=== PATIENT | female | born 1940 | race Caucasian/White ===

== ENCOUNTER 2018-08-24 09:15 | Inpatient (IN) ==
[2018-08-20 18:42] LABS: Basophils # (Auto) 0 K/mcL (0.0-0.3); Basophils % (Auto) 0.6 % (0.0-2.0); Eosinophils # (Auto) 0.3 K/mcL (0.0-0.7); Eosinophils % (Auto) 5.1 % (0.0-7.0); Granulocytes % (Auto) 57.2 % (38.0-78.0); Lymphocytes # (Auto) 1.3 K/mcL (1.5-4.8); Lymphocytes % (Auto) 22.7 % (15.5-49.0); Mean Cell Volume 88.2 fL (80.0-100.0); Mean Corpuscular HGB Conc 32.1 g/dL (31.0-36.0); Monocytes # (Auto) 0.8 K/mcL (0.1-0.9); Monocytes % (Auto) 14.4 % (1.0-12.0); Platelet Count 379 K/mcL (140-440); RBC 4.11 M/mcL (4.00-5.20); Red Cell Distribution Width 16.9 % (11.5-14.5)
[2018-08-20 18:46] LABS: Appearance,Urine HAZY; Bacteria,Urine 0 /hpf (0); Bilirubin,Urine NEG (NEG); Color,Urine YELLOW; Glucose,Urine (UA) NEGATIVE (NEG); Leukocyte Esterase,Urine 250 /uL (NEG); Mucus,Urine MOD /hpf (0); Protein,Urine NEG (NEG); Specific Gravity,Urine 1.021 (1.000-1.035); Urine Blood NEG mg/dL (<0.03); Urine RBC 4 /hpf (0-1); Urine Squamous Epithelial Cell 6 /hpf (0-4); Urine Transitional Epi Cells < 1 /hpf (0-2); Urine WBC 23 /hpf (0-4); Urobilinogen,Urine NEG (NEG)
[2018-08-20 19:45] LABS: Blood Urea Nitrogen 20 mg/dl (8-23)
[2018-09-07] MEDS ORDERED: 0.9 % SODIUM CHLORIDE 9 ML, KETOROLAC 30 MG, ROPIVACAINE HCL/PF 49.5 ML, EPINEPHrine 0.... IJ SCH (07:00)
[2018-09-07] MEDS ORDERED: ACETAMINOPHEN 500 MG TABLET PO SCH (07:00)
[2018-09-07] MEDS ORDERED: CELECOXIB 200 MG CAPSULE PO SCH (07:00)
[2018-09-07] MEDS ORDERED: oxyCODONE 10 MG TAB.ER.12H PO SCH (07:00)
[2018-09-07] MEDS ORDERED: ceFAZolin 2 GM in DEXTROSE 5% IN WATER 50 ML IV SCH (07:00)
[2018-09-07] MEDS ORDERED: GABAPENTIN 100 MG CAPSULE PO SCH (07:00)
[2018-09-07] MEDS ORDERED: ePHEDrine 50 MG/ML AMPUL IV ONE (07:35)
[2018-09-07] MEDS ORDERED: MIDAZOLAM 2 MG/2 ML VIAL IV ONE (07:35)
[2018-09-07] MEDS ORDERED: DEXAMETHASONE 4 MG/ML VIAL IV ONE (07:35)
[2018-09-07] MEDS ORDERED: ONDANSETRON 4 MG/2 ML VIAL IV ONE (07:35)
[2018-09-07] MEDS ORDERED: PROPOFOL 200 MG/20 ML VIAL IV ONE (07:35)
[2018-09-07] MEDS ORDERED: PHENYLEPHRINE 10 MG/ML VIAL IV ONE (07:35)
[2018-09-07] MEDS ORDERED: ROPIVACAINE HCL/PF 20 ML VIAL IJ ONE (07:35)
[2018-09-07] MEDS ORDERED: LIDOCAINE HCL/PF 100 MG/5 ML SYRINGE IV ONE (07:35)
[2018-09-07] MEDS ORDERED: TRANEXAMIC ACID 1,000 MG/10 ML VIAL IV ONE ×2 (07:35→09:03)
[2018-09-07] MEDS ORDERED: GENTAMICIN SULFATE 800 MG/20 ML VIAL IR ONE (08:13)
[2018-09-07] MEDS ORDERED: BISACODYL 10 MG SUPP.RECT PR PRN (09:03)
[2018-09-07] MEDS ORDERED: BENZOCAINE/MENTHOL 1 LOZENGE PO PRN (09:03)
[2018-09-07] MEDS ORDERED: FLEETS ADULT ENEMA PR PRN (09:03)
[2018-09-07] MEDS ORDERED: MAGNESIUM HYDROXIDE 30 ML ORAL.SUSP PO PRN (09:03)
[2018-09-07] MEDS ORDERED: ACETAMINOPHEN 325 MG TABLET PO PRN (09:03)
[2018-09-07] MEDS ORDERED: POLYETHYLENE GLYCOL 3350 17 GM PACKET PO PRN (09:03)
[2018-09-07] MEDS ORDERED: TEMAZEPAM 15 MG CAPSULE PO PRN (09:03)
[2018-09-07] MEDS ORDERED: CLIDINIUM PO PRN (09:05)
[2018-09-07] MEDS ORDERED: DICYCLOMINE 20 MG TABLET PO PRN (09:05)
[2018-09-07] MEDS ORDERED: ONDANSETRON 4 MG ODT TABLET PO PRN (09:05)
[2018-09-07] MEDS ORDERED: CHLORDIAZEPOXIDE PO PRN (09:05)
[2018-09-07] MEDS ORDERED: ALPRAZolam 0.5 MG TABLET PO PRN (09:05)
[2018-09-07] MEDS ORDERED: NITROGLYCERIN 0.4 MG TAB.SUBL SL PRN (09:05)
[2018-09-07] MEDS ORDERED: ONDANSETRON 4 MG/2 ML VIAL IV PRN (09:57)
[2018-09-07] MEDS ORDERED: FLUMAZENIL 0.1 MG/ML ML IV PRN (09:57)
[2018-09-07] MEDS ORDERED: IPRATROPIUM/ALBUTEROL 3 ML AMPUL.NEB NEB PRN (09:57)
[2018-09-07] MEDS ORDERED: NALOXONE HCL 0.4 MG/ML VIAL IV PRN (09:57)
--- NOTE | 2018-09-07 10:00 | XRay Report ---
CLINICAL INFORMATION: Right knee replacement TECHNIQUE: AP and crosstable lateral right knee COMPARISON: Previous examination dated 12/19/2016 FINDINGS: Status post right total knee arthroplasty. Anatomic alignment demonstrated. There is postsurgical soft tissue and intra-articular gas. There are skin maynor anteriorly IMPRESSION: Status post right total knee arthroplasty Interpreted and Authenticated by: Rock Mendoza 09/07/18
[2018-09-07] MEDS: fentaNYL 100 MCG/2 ML VIAL IV PRN ×4 (10:05→10:13)
--- NOTE | 2018-09-07 10:29 | Brief Operative Note ---
Date of procedure: 09/07/18 Pre-op diagnosis: righrt knee djd severe Post-op diagnosis: same Procedure: Right total knee Grafts/Implants: Yes Anesthesia: GETA Surgeon: Carlos Manuel Mcneill Timekeeper: Tony Latham Estimated blood loss (cc): 20 Tourniquet Time (Minutes): 50 Specimens Removed/Pathology: none sent Condition: stable Disposition: PACU
[2018-09-07] MEDS: 0.45 % SODIUM CHLORIDE 1,000 ML IV SCH ×2 (10:30→20:46)
[2018-09-07] MEDS: HYDROmorphone 2 MG/ML VIAL IV PRN ×2 (10:46→12:22)
--- NOTE | 2018-09-07 11:02 | Operative Note ---
DATE OF OPERATION: 09/07/2018 PREOPERATIVE DIAGNOSIS: Right knee severe degenerative arthritis. POSTOPERATIVE DIAGNOSIS: Right knee severe degenerative arthritis. PROCEDURE: Right total knee arthroplasty using the Rico robot. SURGEON: Carlos Manuel Mcneill MD TANGLED YARN SPOOL STRAIGHTENER: Tony Latham PA-C TOURNIQUET TIME: Approximately 50 minutes. ESTIMATED BLOOD LOSS: About 100 mL IMPLANTS: Per nurse's note. All components were cemented. DESCRIPTION OF PROCEDURE: The patient was brought to the operating room and put to sleep with general LMA anesthesia. Once asleep, the patient had the right leg sterilely prepped and draped in the usual sterile fashion. Once done, a timeout was performed. Tranexamic acid and preoperative antibiotics were given. We made a midline incision, a mid vastus approach performed. We identified the joint and removed osteophytes, placed pins above and below the knee for the robot, registered the center of hip rotation, registered medial and lateral malleoli, registered 30 points on the femur and the tibia. Intra-articular pins were registered and then we balanced the knee at 90 degrees and in full extension at 15 degrees. There was a valgus malalignment of slight 1 degree flexion contracture. The valgus was approximately 7 degrees of valgus. With this, we did bring the patient back to normal anatomy, which was 2 degrees of varus and 2 degrees of hyperextension. Using the components and aligning this perfectly, we thickened her patella from a total thickness of 18 to 22. After we exposed everything, we brought the robot in and registered the robot itself, confirmed the alignment and then made the bony cuts. Spurs posteriorly were removed, laterally the spurs were removed. We then trialed the components after positioning them and preserving the posterior cruciate ligament. This fit very nicely. We trialed an 11 and then a 12. The 12 seemed to be more appropriate giving more stability anteriorly and balancing the medial collateral ligament. Once done, we then prepared the patella. It measured a total thickness of 18. We then cut it to 13 mm and cemented into place a 29 mm patellar button. We cemented into place the components. After thorough irrigating and using a CarboJet we prepared the bony surface. The tibial base plate was positioned and tapped into place as well as the femoral component. Excess cement was removed. We placed a 12 mm deep dish liner for stability purposes. We irrigated thoroughly and then cemented into place the above-mentioned patellar component, 29 mm all poly component. Excess cement was removed. We kept the knee at 45 degrees and deflated the tourniquet at 50 minutes. We then closed the mid vastus approach with #1 Stratafix x2. There were no complications. The patient tolerated this well. RBH:nicole Job ID: [id number] Doc ID: [id number] Carlos Manuel Mcneill MD
[2018-09-07] MEDS: KETOROLAC 15 MG/ML VIAL IV SCH ×2 (11:43→17:35)
[2018-09-07] MEDS: 0.9 % SODIUM CHLORIDE 10 ML SYRINGE IV SCH ×2 (12:03→20:49)
[2018-09-07] MEDS: oxyCODONE/APAP 5/325MG TABLET PO PRN ×3 (13:02→21:33)
[2018-09-07] MEDS: ceFAZolin 1 GM VIAL IV SCH ×2 (15:36→23:16)
[2018-09-07] MEDS: CALCIUM (OYSTER SHELL) 500 MG TABLET PO SCH ×2 (15:36→20:47)
[2018-09-07] MEDS: GABAPENTIN 100 MG CAPSULE PO SCH ×2 (15:36→20:47)
[2018-09-07] MEDS: DOCUSATE SODIUM 100 MG CAPSULE PO SCH (20:47)
[2018-09-07] MEDS: ASPIRIN 325 MG ENTERIC COATED TABLET PO SCH (20:47)
[2018-09-07] MEDS: FAMOTIDINE 20 MG TABLET PO SCH (20:47)
[2018-09-07] MEDS: SENNOSIDES 1 TABLET PO SCH (20:48)
[2018-09-07] MEDS: HYDROXYCHLOROQUINE 200 MG TABLET PO SCH (20:48)
[2018-09-07] MEDS: TOLTERODINE 2 MG CAP.XL.24H PO SCH (20:48)
[2018-09-07] MEDS: POLYETHYLENE GLYCOL 3350 17 GM PACKET PO SCH (20:49)
[2018-09-07] MEDS: FLUTICASONE/SALMETEROL 50/100 INHALER #14 INH SCH (20:49)
[2018-09-07] MEDS ORDERED: NAPROXEN 500 MG TABLET PO SCH (21:00)
[2018-09-08] MEDS: KETOROLAC 15 MG/ML VIAL IV SCH ×5 (00:50→23:37)
[2018-09-08] MEDS: oxyCODONE/APAP 5/325MG TABLET PO PRN ×6 (01:23→21:23)
[2018-09-08] MEDS: HYDROmorphone 2 MG/ML VIAL IV PRN (02:48)
[2018-09-08] MEDS: 0.45 % SODIUM CHLORIDE 1,000 ML IV SCH ×2 (05:30→15:31)
[2018-09-08] MEDS: 0.9 % SODIUM CHLORIDE 10 ML SYRINGE IV SCH ×3 (05:35→23:38)
--- NOTE | 2018-09-08 07:34 | Orthopedic Progress Note ---
Subjective Patient information: Note initiated : 09/08/18 at 7:33 am Service Date, if different from initiated Date: [] Patient: Rosalinda Gilbert 77 y/o F admitted on 09/07/18 for Right Total Knee Arthroplasty Rico . Chief Complaint: [Pt is stable this morning on post operative day 1 without any significant concerns or complaints. Patients vital signs have remained stable. Patients dressing is dry and is grossly intact from a neurovascular and motor standpoint. Patients 10 point ROS is otherwise negative. ] Objective Vital signs: Vital Signs Temp Pulse Resp BP BP Pulse Ox 09/08/18 06:25 97.2 F 59 L 14 112/65 92 09/08/18 04:00 97.6 F 81 18 117/64 92 09/08/18 02:00 95 09/08/18 00:00 97.5 F 67 18 136/74 95 09/07/18 22:00 95 09/07/18 20:00 97.0 F 66 18 130/70 96 09/07/18 18:02 94 09/07/18 16:39 77 16 108/64 94 09/07/18 14:17 72 16 116/72 96 09/07/18 14:00 94 09/07/18 13:22 70 126/67 90 09/07/18 12:22 77 121/67 96 09/07/18 11:52 74 125/73 96 09/07/18 11:23 66 108/55 94 09/07/18 11:08 133/73 96 09/07/18 10:52 126/74 94 09/07/18 10:37 119/70 92 09/07/18 10:36 95 09/07/18 10:22 119/73 97 09/07/18 10:05 97.1 F 71 12 113/59 94 09/07/18 09:50 97.2 F 67 11 L 114/64 100 09/07/18 09:35 97.2 F 71 12 115/56 100 09/07/18 09:30 70 12 112/55 100 09/07/18 09:25 66 11 L 103/53 97 09/07/18 09:20 97.0 F 72 16 102/52 96 Intake and Output 09/07/18 09/08/18 09/08/18 21:59 05:59 13:59 Intake Total 2100 575 Output Total 800 700 Balance 1300 -125 Intake: IV 1000 Sodium Chloride 0.45% 1,000 ml 1000 @ 100 mls/hr IV .Q10H STACIE Rx#: [id number] Oral 1100 575 Output: Void Amount 800 700 Other: Meal Dinner Percent of Meal Consumed 75% Urine Appearance Clear Clear Urine Color Dark Yellow Bright Yellow Weight 246 lb Intake & Output: Intake & Output 09/07/18 09/08/18 09/08/18 21:59 05:59 13:59 Intake Total 2100 575 Output Total 800 700 Balance 1300 -125 Weight 246 lb Intake: IV 1000 Sodium Chloride 0.45% 1,000 ml 1000 @ 100 mls/hr IV .Q10H STACIE Rx#: [id number] Oral 1100 575 Output: Void Amount 800 700 Other: Meal Dinner Percent of Meal Consumed 75% Urine Appearance Clear Clear Urine Color Dark Yellow Bright Yellow Incision: Yes healing Incision clean and dry: Yes Dressing: Yes clean Neurological exam IM: Yes motor sensory intact, Yes neurovascular intact Extremities exam IM: Yes Foot pink and warm, Yes neurovascular intact - Labs CBC & BMP: 09/08/18 04:20 08/20/18 17:35 Labs: Orthopedic Labs 08/20/18 17:35 PT 13.7 INR 1.0 APTT 34 09/08/18 08/20/18 04:20 17:35 Hgb 11.6 L Hct 31.4 L 36.2 Assessment and Plan (1) Hx of total knee arthroplasty The patient has been educated regarding dressing care, Physical Therapy recommendations, home exercises, restrictions, and follow up appointments. The patient has had all necessary DME prescribed. The patient has remained relatively stable during their hospital course. Status: Acute
[2018-09-08] MEDS: LEVOTHYROXINE 125 MCG TABLET PO SCH (07:35)
--- NOTE | 2018-09-08 07:36 | Discharge Summary ---
Ortho Discharge - TKA - Patient Instructions Diet: Regular Diet Activity: activity as tolerated, weight bearing as tolerated Total Knee Protocol: For Total Knee: Start ROM JUDY with stationary bike or rocking chair. Work on gaining full extension of knee. Posterior dislocation precautions provided. Hip abductor strengthening and gait training instructions provided. Apply Cryocuff as instructed. Dressing Care: May shower in 3 days, Aquacel Ag - leave on for 5 days - Problem Maintenance (1) Hx of total knee arthroplasty Status: Acute - Follow Up Plan Follow Up Appointments: Carlos Manuel Mcneill MD [Physician] - 09/22/18 9:30 am Disposition: [facility] Swing Bed Prognosis: Good Rehab Potential: Good I certify that the patient requires SNF services: Yes Overall status at discharge: patient is progressing back to baseline - Orders For Discharge Prescriptions: Aspirin [Ecotrin] 325 mg PO BID #60 tab.ec Docusate Sodium [Colace] 100 mg PO BID #60 cap oxyCODONE/APAP [Percocet 5-325 mg] 1 - 2 tab PO Q4HP PRN #75 tab PRN Reason: Pain Level 3-6
[2018-09-08] MEDS ORDERED: CALCIUM CARBONATE 500 MG TAB.CHEW CHEWED PRN (07:44)
[2018-09-08] MEDS: FAMOTIDINE 20 MG TABLET PO SCH ×2 (08:08→20:04)
[2018-09-08] MEDS: GABAPENTIN 100 MG CAPSULE PO SCH ×3 (08:10→20:04)
[2018-09-08] MEDS: NORTRIPTYLINE 25 MG CAPSULE PO SCH (08:10)
[2018-09-08] MEDS: ASPIRIN 325 MG ENTERIC COATED TABLET PO SCH ×2 (08:11→20:04)
[2018-09-08] MEDS: HYDROXYCHLOROQUINE 200 MG TABLET PO SCH ×2 (08:11→20:04)
[2018-09-08] MEDS: NORTRIPTYLINE 10 MG CAPSULE PO SCH (08:11)
[2018-09-08] MEDS: CALCIUM (OYSTER SHELL) 500 MG TABLET PO SCH ×3 (08:11→20:04)
[2018-09-08] MEDS: VITAMIN D3 1,000 UNIT TABLET PO SCH (08:11)
[2018-09-08] MEDS: LACTOBACILLUS 1 CAPSULE PO SCH (08:11)
[2018-09-08] MEDS: FOLIC ACID 1 MG TABLET PO SCH (08:11)
[2018-09-08] MEDS: DOCUSATE SODIUM 100 MG CAPSULE PO SCH ×2 (08:11→20:04)
[2018-09-08] MEDS: FLUTICASONE/SALMETEROL 50/100 INHALER #14 INH SCH ×2 (08:13→20:47)
[2018-09-08] MEDS: CALCIUM CARBONATE 500 MG TAB.CHEW CHEWED PRN ×4 (08:25→23:49)
[2018-09-08] MEDS: SENNOSIDES 1 TABLET PO SCH (20:04)
[2018-09-08] MEDS: POLYETHYLENE GLYCOL 3350 17 GM PACKET PO SCH (20:05)
[2018-09-08] MEDS: TOLTERODINE 2 MG CAP.XL.24H PO SCH (20:13)
[2018-09-08] MEDS: ONDANSETRON 4 MG/2 ML VIAL IV PRN (23:44)
[2018-09-09] MEDS: oxyCODONE/APAP 5/325MG TABLET PO PRN ×4 (00:02→14:11)
[2018-09-09] MEDS: 0.45 % SODIUM CHLORIDE 1,000 ML IV SCH ×3 (00:02→22:25)
[2018-09-09] MEDS: 0.9 % SODIUM CHLORIDE 10 ML SYRINGE IV SCH ×3 (05:25→22:07)
[2018-09-09] MEDS: KETOROLAC 15 MG/ML VIAL IV SCH (05:25)
--- NOTE | 2018-09-09 06:56 | Orthopedic Progress Note ---
Subjective Patient information: Note initiated : 09/09/18 at 6:54 am Service Date, if different from initiated Date: [] Patient: Rosalinda Gilbert 77 y/o F admitted on 09/07/18 for Right Total Knee Arthroplasty Rico . Chief Complaint: [Very slow walking only70 feet and co reflux but releif with tums] Objective Vital signs: Vital Signs Temp Pulse Resp BP BP Pulse Ox 09/09/18 06:39 97.1 F 75 18 101/50 93 09/09/18 03:56 98.1 F 75 12 106/57 91 09/08/18 23:38 98.5 F 89 12 111/64 93 09/08/18 21:20 102/59 09/08/18 18:53 97.6 F 70 12 97/58 97 09/08/18 17:00 97 09/08/18 16:00 97.9 F 87 16 110/68 97 09/08/18 11:08 98.2 F 85 16 97/57 95 Intake and Output 09/08/18 09/09/18 09/09/18 21:59 05:59 13:59 Intake Total 1240 750 Output Total 500 100 Balance 740 650 Intake: IV 1000 Sodium Chloride 0.45% 1,000 ml 1000 @ 100 mls/hr IV .Q10H STACIE Rx#: [id number] Oral 240 750 Output: Void Amount 500 100 Other: Meal Dinner Percent of Meal Consumed 50% Feeding Ability Independent Urine Appearance Clear Urine Color Dark Yellow # Voids 1 Weight 255 lb Intake & Output: Intake & Output 09/08/18 09/09/18 09/09/18 21:59 05:59 13:59 Intake Total 1240 750 Output Total 500 100 Balance 740 650 Weight 255 lb Intake: IV 1000 Sodium Chloride 0.45% 1,000 ml 1000 @ 100 mls/hr IV .Q10H STACIE Rx#: [id number] Oral 240 750 Output: Void Amount 500 100 Other: Meal Dinner Percent of Meal Consumed 50% Feeding Ability Independent Urine Appearance Clear Urine Color Dark Yellow # Voids 1 Incision: Yes healing Incision clean and dry: Yes Weight bearing status: full Neurological exam IM: Yes alert, Yes oriented X3, Yes neurovascular intact Extremities exam IM: Yes Foot pink and warm, Yes neurovascular intact - Labs CBC & BMP: 09/08/18 04:20 08/20/18 17:35 Labs: Orthopedic Labs 08/20/18 17:35 PT 13.7 INR 1.0 APTT 34 09/08/18 08/20/18 04:20 17:35 Hgb 11.6 L Hct 31.4 L 36.2
--- NOTE | 2018-09-09 06:58 | Discharge Summary ---
Ortho Discharge - TKA - Patient Instructions Diet: Regular Diet Activity: activity as tolerated, weight bearing as tolerated Total Knee Protocol: For Total Knee: Start ROM JUDY with stationary bike or rocking chair. Work on gaining full extension of knee. Posterior dislocation precautions provided. Hip abductor strengthening and gait training instructions provided. Apply Cryocuff as instructed. Dressing Care: May shower in 2 days, Aquacel Ag - leave on for 5 days Additional Instructions: Anika covering surgical incision. - Follow Up Plan Follow Up Appointments: Carlos Manuel Mcneill MD [Physician] - 09/22/18 9:30 am Disposition: [facility] Swing Bed Prognosis: Good Rehab Potential: Good I certify that the patient requires SNF services: Yes Overall status at discharge: patient is progressing back to baseline - Orders For Discharge Prescriptions: Aspirin [Ecotrin] 325 mg PO BID #60 tab.ec Docusate Sodium [Colace] 100 mg PO BID #60 cap oxyCODONE/APAP [Percocet 5-325 mg] 1 - 2 tab PO Q4HP PRN #75 tab PRN Reason: Pain Level 3-6 Additional Discharge Orders: Physical Therapy at Discharge - TKA Location: None Selected CPM Discharge Order Location: None Selected Toilet Riser Discharge Order Location: None Selected Walker Location: None Selected
[2018-09-09] MEDS: MELOXICAM 7.5 MG TABLET PO SCH ×2 (07:18→17:51)
[2018-09-09] MEDS: LEVOTHYROXINE 125 MCG TABLET PO SCH (07:18)
[2018-09-09] MEDS: CALCIUM CARBONATE 500 MG TAB.CHEW CHEWED PRN ×2 (07:22→12:24)
[2018-09-09] MEDS: HYDROXYCHLOROQUINE 200 MG TABLET PO SCH ×3 (08:20→22:59)
[2018-09-09] MEDS: NORTRIPTYLINE 10 MG CAPSULE PO SCH (08:20)
[2018-09-09] MEDS: VITAMIN D3 1,000 UNIT TABLET PO SCH (08:20)
[2018-09-09] MEDS: GABAPENTIN 100 MG CAPSULE PO SCH ×4 (08:20→23:00)
[2018-09-09] MEDS: CALCIUM (OYSTER SHELL) 500 MG TABLET PO SCH ×3 (08:20→22:59)
[2018-09-09] MEDS: ASPIRIN 325 MG ENTERIC COATED TABLET PO SCH ×3 (08:20→23:00)
[2018-09-09] MEDS: FOLIC ACID 1 MG TABLET PO SCH (08:21)
[2018-09-09] MEDS: FAMOTIDINE 20 MG TABLET PO SCH ×3 (08:21→22:59)
[2018-09-09] MEDS: LACTOBACILLUS 1 CAPSULE PO SCH (08:21)
[2018-09-09] MEDS: DOCUSATE SODIUM 100 MG CAPSULE PO SCH ×3 (08:21→23:00)
[2018-09-09] MEDS: FLUTICASONE/SALMETEROL 50/100 INHALER #14 INH SCH ×2 (08:25→23:00)
[2018-09-09] MEDS: NORTRIPTYLINE 25 MG CAPSULE PO SCH (09:37)
[2018-09-09] MEDS ORDERED: METHOCARBAMOL 750 MG TABLET PO PRN ×2 (09:57→21:31)
[2018-09-09] MEDS: ONDANSETRON 4 MG/2 ML VIAL IV PRN ×3 (12:24→20:38)
[2018-09-09] MEDS ORDERED: 0.45 % SODIUM CHLORIDE 1,000 ML IV SCH (17:15)
[2018-09-09] MEDS ORDERED: TOLTERODINE 2 MG CAP.XL.24H PO SCH (21:00)
[2018-09-09] MEDS ORDERED: POLYETHYLENE GLYCOL 3350 17 GM PACKET PO SCH (21:00)
[2018-09-09] MEDS ORDERED: SENNOSIDES 1 TABLET PO SCH (21:00)
[2018-09-09] MEDS ORDERED: TEMAZEPAM 15 MG CAPSULE PO PRN (21:31)
[2018-09-09] MEDS ORDERED: NITROGLYCERIN 0.4 MG TAB.SUBL SL PRN (21:31)
[2018-09-09] MEDS ORDERED: CALCIUM CARBONATE 500 MG TAB.CHEW CHEWED PRN (21:31)
[2018-09-09] MEDS ORDERED: CHLORDIAZEPOXIDE PO PRN (21:31)
[2018-09-09] MEDS ORDERED: oxyCODONE/APAP 5/325MG TABLET PO PRN (21:31)
[2018-09-09] MEDS ORDERED: MAGNESIUM HYDROXIDE 30 ML ORAL.SUSP PO PRN (21:31)
[2018-09-09] MEDS ORDERED: ALPRAZolam 0.5 MG TABLET PO PRN (21:31)
[2018-09-09] MEDS ORDERED: BISACODYL 10 MG SUPP.RECT PR PRN (21:31)
[2018-09-09] MEDS ORDERED: POLYETHYLENE GLYCOL 3350 17 GM PACKET PO PRN (21:31)
[2018-09-09] MEDS ORDERED: ACETAMINOPHEN 325 MG TABLET PO PRN (21:31)
[2018-09-09] MEDS ORDERED: DICYCLOMINE 20 MG TABLET PO PRN (21:31)
[2018-09-09] MEDS ORDERED: FLEETS ADULT ENEMA PR PRN (21:31)
[2018-09-09] MEDS ORDERED: ONDANSETRON 4 MG ODT TABLET PO PRN (21:31)
[2018-09-09] MEDS ORDERED: CLIDINIUM PO PRN (21:31)
[2018-09-09] MEDS ORDERED: BENZOCAINE/MENTHOL 1 LOZENGE PO PRN (21:31)
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
[2018-09-09 22:04] LABS: Basophils # (Auto) 0 K/mcL (0.0-0.3); Basophils % (Auto) 0.1 % (0.0-2.0); Eosinophils # (Auto) 0.2 K/mcL (0.0-0.7); Eosinophils % (Auto) 2.2 % (0.0-7.0); Granulocytes % (Auto) 85.3 % (38.0-78.0); Lymphocytes # (Auto) 0.4 K/mcL (1.5-4.8); Lymphocytes % (Auto) 4.7 % (15.5-49.0); Mean Cell Volume 85.8 fL (80.0-100.0); Mean Corpuscular HGB Conc 34.2 g/dL (31.0-36.0); Monocytes # (Auto) 0.6 K/mcL (0.1-0.9); Monocytes % (Auto) 7.7 % (1.0-12.0); Platelet Count 251 K/mcL (140-440); RBC 3.68 M/mcL (4.00-5.20); Red Cell Distribution Width 17.8 % (11.5-14.5)
[2018-09-09] MEDS ORDERED: METOCLOPRAMIDE 10 MG/2 ML VIAL ONE (22:05)
[2018-09-09 22:06] LABS: Estimated Average Glucose(eAG) 105 mg/dL; Hemoglobin A1C 5.3 % HGB (4.0-6.0)
[2018-09-09] MEDS: METOCLOPRAMIDE 10 MG/2 ML VIAL IV PRN (22:07)
[2018-09-09 22:24] LABS: ALT/SGPT 8 U/l (0-40); Albumin 3.5 gm/dL (3.2-5.2); Albumin/Globulin Ratio 1.2 (1.0-2.3); Alkaline Phosphatase 75 U/L (39-117); Bilirubin,Direct < 0.2 mg/dL (0.0-0.3); Blood Urea Nitrogen 21 mg/dl (8-23); Gamma Glutamyl Transpeptidase 13 U/L (5-36); HDL Cholesterol 75 mg/dl (>40); LDL Cholesterol,Calculated 48 mg/dl (SEE CHART); Myoglobin 29 ng/ml (25-58); Uric Acid 7.3 mg/dL (2.5-8.0)
[2018-09-09] MEDS: PANTOPRAZOLE 40 MG VIAL IV SCH ×2 (22:24→22:55)
[2018-09-09] MEDS ORDERED: PANTOPRAZOLE 40 MG TABLET ONE (22:50)
[2018-09-09] MEDS ORDERED: PANTOPRAZOLE 40 MG VIAL IV ONE (22:54)
[2018-09-09] MEDS: SENNOSIDES 1 TABLET PO SCH (22:59)
[2018-09-09] MEDS: TOLTERODINE 2 MG CAP.XL.24H PO SCH (23:00)
[2018-09-09] MEDS: POLYETHYLENE GLYCOL 3350 17 GM PACKET PO SCH (23:00)
[2018-09-09] MEDS: HYDROmorphone 2 MG/ML VIAL IV PRN (23:42)
[2018-09-10] MEDS: ONDANSETRON 4 MG/2 ML VIAL IV PRN ×2 (00:05→04:22)
[2018-09-10] MEDS: HYDROmorphone 2 MG/ML VIAL IV PRN ×3 (03:01→13:48)
[2018-09-10] MEDS: 0.45 % SODIUM CHLORIDE 1,000 ML IV SCH ×2 (03:05→13:28)
[2018-09-10] MEDS: METOCLOPRAMIDE 10 MG/2 ML VIAL IV PRN (04:23)
[2018-09-10] MEDS ORDERED: METOCLOPRAMIDE 10 MG/2 ML VIAL ONE (04:23)
[2018-09-10] MEDS: 0.9 % SODIUM CHLORIDE 10 ML SYRINGE IV SCH ×3 (05:26→21:27)
--- NOTE | 2018-09-10 05:45 | XRay Report ---
INDICATION: Dyspnea TECHNIQUE: AP chest x-ray,portable semiupright COMPARISON: Previous chest x-rays dated 05/31/1715 FINDINGS:No acute or focal pulmonary parenchymal infiltrate. No parenchymal mass Heart size and vascularity are normal. No pulmonary edema. There is no pulmonary congestion. No acute abnormality or interval change IMPRESSION: Negative AP chest x-ray Interpreted and Authenticated by: Rock Mendoza 09/10/18
--- NOTE | 2018-09-10 05:48 | XRay Report ---
CLINICAL INFORMATION: Vomiting TECHNIQUE: AP supine abdomen COMPARISON: None. FINDINGS: Limited evaluation. The entire abdomen is not included. There are surgical clips in the right upper quadrant. There is fecal material which is probably within the hepatic flexure of the colon. Right hemidiaphragm and the right flank are not completely included on this examination. No dilated gas-filled small bowel. No evidence for mechanical small bowel obstruction. Multilevel degenerative disc disease in the lumbar spine. IMPRESSION: 1. Limited evaluation. 2. No evidence for mechanical small bowel obstruction Interpreted and Authenticated by: Rock Mendoza 09/10/18
[2018-09-10 06:23] LABS: Blood Urea Nitrogen 20 mg/dl (8-23)
[2018-09-10] MEDS ORDERED: LEVOTHYROXINE 125 MCG TABLET PO SCH (07:30)
[2018-09-10] MEDS: PANTOPRAZOLE 40 MG VIAL IV SCH ×2 (07:30→18:17)
[2018-09-10 08:04] LABS: Amylase 34 U/L (28-100); Lipase 18 U/L (7-60)
[2018-09-10] MEDS: PROMETHAZINE 25 MG/ML VIAL IV PRN (08:10)
[2018-09-10] MEDS ORDERED: VITAMIN D3 1,000 UNIT TABLET PO SCH (09:00)
[2018-09-10] MEDS ORDERED: NORTRIPTYLINE 10 MG CAPSULE PO SCH (09:00)
[2018-09-10] MEDS ORDERED: FOLIC ACID 1 MG TABLET PO SCH (09:00)
[2018-09-10] MEDS ORDERED: LACTOBACILLUS 1 CAPSULE PO SCH (09:00)
--- NOTE | 2018-09-10 09:42 | Internal Med Progress Note ---
Medical - PN: Subj Patient information: Note initiated : 09/10/18 at 9:40 am Service Date, if different from initiated Date: [] Patient: Rosalinda Gilbert a 77 y/o F admitted on 09/07/18 for Right Total Knee Arthroplasty Rico . Chief Complaint: [] Interval history: Ms. Gilbert is a 77 year old F admitted to the hospital under the Ortho service for knee replacement, she had a knee replacement done on the . The patient was doing well until this morning. She developed abdominal discomfort and has been throwing up since then. The patient had an episode of diaphoresis, some reflux symptoms and epigastric distress, tachycardia, and an EKG was done. There were changes in the patient's EKG compared to her previous preop EKG. Troponin was negative medicine was consulted for further management. On my evaluation patient was feeling nauseous and wanting to throw up, she did not have any blood in the vomitus, she was in mild distress from her nausea otherwise had no other complaints. On my evaluation she denied any headache changes in vision, she did admit to some dizziness before, she denied any chest pain chest discomfort or chest tightness denied any palpitations or shortness of breath. She did admit to abdominal discomfort nausea and vomiting. No bowel movements. The patient denies any new joint pain except there is pain in the knee from surgery, she denies any skin rashes denies any depression or anxiety. [place] Her troponin initial draw was negative. EKG showed sinus rhythm, right bundle branch block first-degree heart block and Q waves in V4 to V6 which are new compared to her previous EKG 09/10 Patient seen examined, still very nauseaus, despite reglan and zofran no events on tele, on asa pt trop x 3 is negative EKG changes likely from GI symptoms Plan to get CT abdomen and pelvix IV PPI and phenergan labs unremarkable, amylase and lipase is negative. lft normal Pertinent ROS: Denies headache, dizziness Denies chest pain, palpitations Denies cough or shortness of breath abdominal pain nausea and vomiting present . - Constitutional Vitals: Vital Signs Temp Pulse Resp BP Pulse Ox 97.3 F 112 H 16 100/53 93 09/10/18 08:00 09/10/18 04:00 09/10/18 08:00 09/10/18 08:00 09/10/18 08:00 Period Temp Pulse Resp BP Sys/Adler Pulse Ox Last 24 Hr 97.3 F-97.9 F 81-120 16-18 100-136/53-92 88-95 Intake and Output 09/09/18 09/10/18 09/10/18 21:59 05:59 13:59 Output Total 1750 1710 750 Balance -1750 -1710 -750 Weight 256 lb Intake & Output: Intake & Output 09/09/18 09/10/18 09/10/18 21:59 05:59 13:59 Output Total 1750 1710 750 Balance -1750 -1710 -750 Weight 256 lb Output: Void Amount 450 Emesis 1750 1260 750 Other: Urine Appearance Clear Urine Color Dark Yellow Stool Color Brown Green Exam: Denies headache, dizziness Denies chest pain, palpitations Denies cough or shortness of breath present abdominal pain, nausea and vomiting. Medical - PN: Obj Da - Labs CBC & Chem 7: 09/09/18 20:47 09/10/18 03:30 Labs: Abnormal Lab Results 09/10/18 09/09/18 09/09/18 03:30 20:47 20:47 RBC 3.68 L Hgb 10.8 L Hct 31.5 L RDW 17.8 H Gran % 85.3 H Lymph % (Auto) 4.7 L Lymph # (Auto) 0.4 L Chloride 93 L 94 L Carbon Dioxide 33 H Phosphorus 4.6 H 09/08/18 04:20 RBC Hgb Hct 31.4 L RDW Gran % Lymph % (Auto) Lymph # (Auto) Chloride Carbon Dioxide Phosphorus Meds: Medications Acetaminophen (Tylenol) 650 mg PO Q6HP PRN PRN Reason: PAIN/FEVER > 101 Alprazolam (Xanax) 0.5 mg PO BIDP PRN PRN Reason: Anxiety Aspirin (Ecotrin) 325 mg PO BID [facility] Last Admin: 09/09/18 22:07 Dose: 325 mg Documented by: Bisacodyl (Dulcolax) 10 mg MO Q2-3DAYS PRN PRN Reason: Constipation Calcium Carbonate/Glycine (Oscal) 500 mg PO TID [facility] Calcium Carbonate/Glycine (Tums) 1,000 mg CHEWED Q4HP PRN PRN Reason: Dyspepsia Last Admin: 09/10/18 00:06 Dose: 1,000 mg Documented by: Dicyclomine HCl (Dicyclomine) 20 mg PO BIDP PRN PRN Reason: GASTRIC DISTRESS Docusate Sodium (Colace) 100 mg PO BID [facility] Last Admin: 09/09/18 21:56 Dose: Not Given Documented by: Famotidine (Pepcid) 20 mg PO BID [facility] Last Admin: 09/09/18 21:57 Dose: Not Given Documented by: Folic Acid (Folic Acid) 1 mg PO DAILY [facility] Gabapentin (Neurontin) 200 mg PO TID [facility] Last Admin: 09/09/18 22:07 Dose: 200 mg Documented by: Hydromorphone HCl (Dilaudid) 0 mg IV Q2HP PRN PRN Reason: PAIN LEVEL > 6 Last Admin: 09/10/18 03:01 Dose: 1 mg Documented by: Hydroxychloroquine Sulfate (Plaquenil) 200 mg PO BID [facility] Last Admin: 09/09/18 22:31 Dose: 200 mg Documented by: Sodium Chloride (Sodium Chloride 0.45%) 1,000 mls @ 100 mls/hr IV .Q10H [facility] Last Admin: 09/10/18 03:05 Dose: 100 mls/hr Documented by: Lactobacillus Rhamnosus (Culturelle) 1 cap PO DAILY [facility] Levothyroxine Sodium (Synthroid) 125 mcg PO QAMAC [facility] Magnesium Hydroxide (Milk Of Magnesia) 30 ml PO BIDP PRN PRN Reason: Constipation Meloxicam (Mobic) 7.5 mg PO BIDCC [facility] Methocarbamol (Robaxin) 750 mg PO Q6HP PRN PRN Reason: Muscle Spasm Metoclopramide HCl (Reglan) 10 mg IV Q6HP PRN PRN Reason: Nausea And Vomiting Last Admin: 09/10/18 04:23 Dose: 10 mg Documented by: Nitroglycerin (Nitrostat) 0.4 mg SL Q5M PRN PRN Reason: Chest Pain Nortriptyline HCl (Pamelor) 10 mg PO DAILY [facility] Nortriptyline HCl (Pamelor) 75 mg PO DAILY [facility] Ondansetron HCl (Zofran) 4 mg IV Q4HP PRN PRN Reason: Nausea And Vomiting Last Admin: 09/10/18 04:22 Dose: 4 mg Documented by: Ondansetron HCl (Zofran Odt) 8 mg PO Q8HP PRN PRN Reason: Nausea Last Admin: 09/09/18 23:42 Dose: 8 mg Documented by: Oxycodone/Acetaminophen (Percocet 5-325 Mg) 0 tab PO Q4HP PRN PRN Reason: PAIN LEVEL 3-6 Last Admin: 09/10/18 06:32 Dose: 1 tab Documented by: Pantoprazole Sodium (Protonix) 40 mg IV BIDAC [facility] Last Admin: 09/09/18 22:55 Dose: 40 mg Documented by: Chlordiazepoxide/Clidinium [Librax] 5 /2.5 Mg Cap 1 dose PO TIDP PRN PRN Reason: GASTRIC DISTRESS Linaclotide [Linzess (] 145 Mcg Cap) 1 dose PO DAILY [facility] Polyethylene Glycol (Miralax) 17 gm PO DAILYP PRN PRN Reason: Constipation Polyethylene Glycol (Miralax) 17 gm PO HS [facility] Last Admin: 09/09/18 21:56 Dose: Not Given Documented by: Promethazine HCl (Phenergan) 12.5 mg IV Q4HP PRN PRN Reason: Nausea And Vomiting Last Admin: 09/10/18 08:10 Dose: 12.5 mg Documented by: Fluticasone/Salmeterol (Advair 100-50 Diskus) 1 puff INH BID [facility] Senna (Senokot) 2 tab PO [facility] Last Admin: 09/09/18 21:58 Dose: Not Given Documented by: Sodium Biphosphate/Sodium Phosphate (Fleets Adult) 1 dose MO Q3-4DAYS PRN PRN Reason: Constipation Sodium Chloride (Saline Flush) 10 ml IV Q8 [facility] Last Admin: 09/10/18 05:26 Dose: Not Given Documented by: Temazepam (Restoril) 15 mg PO HSP PRN PRN Reason: Insomnia Throat Lozenges (Cepacol) 1 lozenge PO PRN PRN PRN Reason: Sore Throat Tolterodine Tartrate (Detrol La) 4 mg PO [facility] Last Admin: 09/09/18 21:57 Dose: Not Given Documented by: Vitamin D (Vitamin D3) 1,000 unit PO DAILY [facility] Medical - PN: A/P - Time Spent With Patient Total time spent is greater than 50% in coordination of care (as documented) at patient's floor/unit and/or counseling patient: - Narrative A/P Narrative: A/P Abnormal EKG -new EKG changes, trop x 3 neg, no events on tele -likely gi etiology rather than cardiac -echo done, results waited. Nausea and Vomiting -not responding to zofran or reglan, start on phenergan -IV ppi -IV reglan -amylase lipase neg, x ray neg for obstruction -CT abdomen pelvis planned. s/p Right knee replacement Morbid obesity bmi 43.3 DVT -as per Ortho Hold dischafge in light of worsening of condition.
[2018-09-10] MEDS: MELOXICAM 7.5 MG TABLET PO SCH ×2 (09:53→18:17)
[2018-09-10] MEDS ORDERED: IOPAMIDOL 100 ML BOTTLE IV ONE (10:03)
--- NOTE | 2018-09-10 10:35 | Cat Scan Report ---
CLINICAL INFORMATION: Abdominal pain COMPARISON: Previous CT scan dated 10/14/2013. Plain film examination dated 09/09/2018 TECHNIQUE: Axial images were obtained through the abdomen and pelvis. Sagittally and coronally reformatted images. 90 mL contrast material injected intravenously. Oral contrast material was not administered FINDINGS: Dilated fluid-filled stomach and small bowel. The appearance is consistent with mechanical small bowel obstruction. Transition point is in the right lower quadrant consistent with ileal obstruction. There is no closed-loop obstruction. There is no localized bowel wall thickening. There is no discrete mass or evidence for volvulus. Findings are probably related to adhesions. Clinical correlation for previous surgery is recommended. Distal ileum is negative. Colon is collapsed. There is sigmoid diverticulosis. No evidence for diverticulitis. No detectable mass. Appendix is not well visualized. Uterus has probably been removed. No adnexal mass. There is minimal free pelvic fluid. There is no intra-abdominal abscess. There is no pneumoperitoneum. No biliary or portal venous gas. There is no pneumatosis. There is bilateral lower lobe atelectasis. There is a moderate hiatal hernia. Liver is negative. No focal intrahepatic abnormality. Liver contour is smooth. There are surgical clips in the gallbladder fossa. Spleen is negative. No splenomegaly. Pancreas is negative. No pancreatic mass. No peripancreatic abnormality. Negative adrenal glands. Kidneys are negative. No solid or cystic mass. No hydronephrosis. There is calcification of the abdominal aorta. No abdominal aortic aneurysm. No retroperitoneal or mesenteric adenopathy. Multilevel degenerative disc disease in the lumbar spine. No lumbar compression fractures. Sacrum and pelvis are negative IMPRESSION: 1. Dilated fluid-filled stomach and small bowel consistent with mechanical small bowel obstruction. Transition point is in the right lower quadrant and is ileal. 2. No closed loop obstruction. Findings are probably secondary to adhesions. Clinical correlation for previous surgery necessary 3. Moderate hiatal hernia 4. Sigmoid diverticulosis. No evidence for diverticulitis 5. Multilevel degenerative disc disease The exam was performed using radiation dose optimization techniques including, but not limited to, automated exposure control, adjustment of the mA and/or kV according to patient size and use of iterative reconstruction technique. Interpreted and Authenticated by: Rock Mendoza 09/10/18
[2018-09-10] MEDS: HYDROXYCHLOROQUINE 200 MG TABLET PO SCH (11:10)
[2018-09-10] MEDS: FAMOTIDINE 20 MG TABLET PO SCH (11:11)
[2018-09-10] MEDS: GABAPENTIN 100 MG CAPSULE PO SCH ×2 (11:12→14:20)
[2018-09-10] MEDS: CALCIUM (OYSTER SHELL) 500 MG TABLET PO SCH ×2 (11:12→14:20)
[2018-09-10] MEDS: ASPIRIN 325 MG ENTERIC COATED TABLET PO SCH (11:13)
[2018-09-10] MEDS: NORTRIPTYLINE 25 MG CAPSULE PO SCH (11:14)
[2018-09-10] MEDS: DOCUSATE SODIUM 100 MG CAPSULE PO SCH (11:14)
--- NOTE | 2018-09-10 12:18 | XRay Report ---
CLINICAL INFORMATION: Nasogastric tube placement. History of small bowel obstruction TECHNIQUE: AP supine abdomen COMPARISON: CT scan dated 09/10/2018 FINDINGS: There is an esophagogastric tube with its tip in the proximal stomach. Dilated small bowel is not visualized and is presumably fluid filled. There is fecal material and gas in the ascending colon and hepatic flexure IMPRESSION: Esophagogastric tube in the stomach Interpreted and Authenticated by: Rock Mendoza 09/10/18
--- NOTE | 2018-09-10 13:04 | Internal Med Progress Note ---
Medical - PN: Subj Patient information: Note initiated : 09/10/18 at 1:00 pm Service Date, if different from initiated Date: [] Patient: Rosalinda Gilbert a 77 y/o F admitted on 09/07/18 for Right Total Knee Arthroplasty [place] . Chief Complaint: [] Interval history: Ms. Gilbert is a 77 year old F admitted to the hospital under the Ortho service for knee replacement, she had a knee replacement done on the . The patient was doing well until this morning. She developed abdominal discomfort and has been throwing up since then. The patient had an episode of diaphoresis, some reflux symptoms and epigastric distress, tachycardia, and an EKG was done. There were changes in the patient's EKG compared to her previous preop EKG. Troponin was negative medicine was consulted for further management. On my evaluation patient was feeling nauseous and wanting to throw up, she did not have any blood in the vomitus, she was in mild distress from her nausea otherwise had no other complaints. On my evaluation she denied any headache changes in vision, she did admit to some dizziness before, she denied any chest pain chest discomfort or chest tightness denied any palpitations or shortness of breath. She did admit to abdominal discomfort nausea and vomiting. No bowel movements. The patient denies any new joint pain except there is pain in the knee from surgery, she denies any skin rashes denies any depression or anxiety. [place] Her troponin initial draw was negative. EKG showed sinus rhythm, right bundle branch block first-degree heart block and Q waves in V4 to V6 which are new compared to her previous EKG 09/10 Patient seen examined, still very nauseaus, despite reglan and zofran no events on tele, on asa pt trop x 3 is negative EKG changes likely from GI symptoms Plan to get CT abdomen and pelvix IV PPI and phenergan labs unremarkable, amylase and lipase is negative. lft normal 09/11 - Constitutional Vitals: Vital Signs Temp Pulse Resp BP Pulse Ox 97.7 F 112 H 16 130/73 97 09/10/18 11:34 09/10/18 08:00 09/10/18 11:34 09/10/18 11:34 09/10/18 11:34 Period Temp Pulse Resp BP Sys/Adler Pulse Ox Last 24 Hr 97.3 F-97.9 F 81-120 16-18 100-136/53-73 88-97 Intake and Output 09/09/18 09/10/18 09/10/18 21:59 05:59 13:59 Output Total 1750 1710 1125 Balance -1749 Weight 116.12 kg Intake & Output: Intake & Output 09/09/18 09/10/18 09/10/18 21:59 05:59 13:59 Output Total 1750 1710 1125 Balance -1749 Weight 116.12 kg Output: Void Amount 450 375 Emesis 1750 1260 750 Other: Urine Appearance Clear Urine Color Dark Yellow Stool Color Brown Green Exam: General: Alert, Awake, No acute Distress, obese Eyes/N/T: EOMI, Head/Neck: neck supple, CV: RRR, No murmurs, Pulm: Clear b/l, no wheezing/rhonchi/rales Abd: Ext: no clubbing/cyanosis/edema Neuro: Alert, no focal deficits, moves all extremities, Skin: warm/dry Medical - PN: Obj Da - Labs CBC & Chem 7: 09/09/18 20:47 09/10/18 03:30 Labs: Abnormal Lab Results 09/10/18 09/09/18 09/09/18 03:30 20:47 20:47 RBC 3.68 L Hgb 10.8 L Hct 31.5 L RDW 17.8 H Gran % 85.3 H Lymph % (Auto) 4.7 L Lymph # (Auto) 0.4 L Chloride 93 L 94 L Carbon Dioxide 33 H Phosphorus 4.6 H 09/08/18 04:20 RBC Hgb Hct 31.4 L RDW Gran % Lymph % (Auto) Lymph # (Auto) Chloride Carbon Dioxide Phosphorus Meds: Medications Acetaminophen (Tylenol) 650 mg PO Q6HP PRN PRN Reason: PAIN/FEVER > 101 Alprazolam (Xanax) 0.5 mg PO BIDP PRN PRN Reason: Anxiety Aspirin (Ecotrin) 325 mg PO BID [facility] Last Admin: 09/10/18 11:13 Dose: Not Given Documented by: Bisacodyl (Dulcolax) 10 mg CA Q2-3DAYS PRN PRN Reason: Constipation Calcium Carbonate/Glycine (Oscal) 500 mg PO TID [facility] Last Admin: 09/10/18 11:12 Dose: Not Given Documented by: Calcium Carbonate/Glycine (Tums) 1,000 mg CHEWED Q4HP PRN PRN Reason: Dyspepsia Last Admin: 09/10/18 00:06 Dose: 1,000 mg Documented by: Dicyclomine HCl (Dicyclomine) 20 mg PO BIDP PRN PRN Reason: GASTRIC DISTRESS Docusate Sodium (Colace) 100 mg PO BID [facility] Last Admin: 09/10/18 11:14 Dose: Not Given Documented by: Famotidine (Pepcid) 20 mg PO BID [facility] Last Admin: 09/10/18 11:11 Dose: Not Given Documented by: Folic Acid (Folic Acid) 1 mg PO DAILY [facility] Last Admin: 09/10/18 11:13 Dose: Not Given Documented by: Gabapentin (Neurontin) 200 mg PO TID [facility] Last Admin: 09/10/18 11:12 Dose: Not Given Documented by: Hydromorphone HCl (Dilaudid) 0 mg IV Q2HP PRN PRN Reason: PAIN LEVEL > 6 Last Admin: 09/10/18 11:09 Dose: 0.5 mg Documented by: Hydroxychloroquine Sulfate (Plaquenil) 200 mg PO BID [facility] Last Admin: 09/10/18 11:10 Dose: Not Given Documented by: Sodium Chloride (Sodium Chloride 0.45%) 1,000 mls @ 100 mls/hr IV .Q10H [facility] Last Admin: 09/10/18 03:05 Dose: 100 mls/hr Documented by: Lactobacillus Rhamnosus (Culturelle) 1 cap PO DAILY [facility] Last Admin: 09/10/18 11:13 Dose: Not Given Documented by: Levothyroxine Sodium (Synthroid) 125 mcg PO QAMAC [facility] Last Admin: 09/10/18 09:52 Dose: Not Given Documented by: Magnesium Hydroxide (Milk Of Magnesia) 30 ml PO BIDP PRN PRN Reason: Constipation Meloxicam (Mobic) 7.5 mg PO BIDCC [facility] Last Admin: 09/10/18 09:53 Dose: Not Given Documented by: Methocarbamol (Robaxin) 750 mg PO Q6HP PRN PRN Reason: Muscle Spasm Metoclopramide HCl (Reglan) 10 mg IV Q6HP PRN PRN Reason: Nausea And Vomiting Last Admin: 09/10/18 04:23 Dose: 10 mg Documented by: Nitroglycerin (Nitrostat) 0.4 mg SL Q5M PRN PRN Reason: Chest Pain Nortriptyline HCl (Pamelor) 10 mg PO DAILY [facility] Last Admin: 09/10/18 11:12 Dose: Not Given Documented by: Nortriptyline HCl (Pamelor) 75 mg PO DAILY [facility] Last Admin: 09/10/18 11:14 Dose: Not Given Documented by: Ondansetron HCl (Zofran) 4 mg IV Q4HP PRN PRN Reason: Nausea And Vomiting Last Admin: 09/10/18 04:22 Dose: 4 mg Documented by: Ondansetron HCl (Zofran Odt) 8 mg PO Q8HP PRN PRN Reason: Nausea Last Admin: 09/09/18 23:42 Dose: 8 mg Documented by: Oxycodone/Acetaminophen (Percocet 5-325 Mg) 0 tab PO Q4HP PRN PRN Reason: PAIN LEVEL 3-6 Last Admin: 09/10/18 06:32 Dose: 1 tab Documented by: Pantoprazole Sodium (Protonix) 40 mg IV BIDAC [facility] Last Admin: 09/10/18 07:30 Dose: 40 mg Documented by: Chlordiazepoxide/Clidinium [Librax] 5 /2.5 Mg Cap 1 dose PO TIDP PRN PRN Reason: GASTRIC DISTRESS Linaclotide [Linzess (] 145 Mcg Cap) 1 dose PO DAILY [facility] Last Admin: 09/10/18 11:11 Dose: Not Given Documented by: Polyethylene Glycol (Miralax) 17 gm PO DAILYP PRN PRN Reason: Constipation Polyethylene Glycol (Miralax) 17 gm PO HS [facility] Last Admin: 09/09/18 21:56 Dose: Not Given Documented by: Promethazine HCl (Phenergan) 12.5 mg IV Q4HP PRN PRN Reason: Nausea And Vomiting Last Admin: 09/10/18 08:10 Dose: 12.5 mg Documented by: Fluticasone/Salmeterol (Advair 100-50 Diskus) 1 puff INH BID [facility] Senna (Senokot) 2 tab PO [facility] Last Admin: 09/09/18 21:58 Dose: Not Given Documented by: Sodium Biphosphate/Sodium Phosphate (Fleets Adult) 1 dose CA Q3-4DAYS PRN PRN Reason: Constipation Sodium Chloride (Saline Flush) 10 ml IV Q8 [facility] Last Admin: 09/10/18 05:26 Dose: Not Given Documented by: Temazepam (Restoril) 15 mg PO HSP PRN PRN Reason: Insomnia Throat Lozenges (Cepacol) 1 lozenge PO PRN PRN PRN Reason: Sore Throat Tolterodine Tartrate (Detrol La) 4 mg PO HS [facility] Last Admin: 09/09/18 21:57 Dose: Not Given Documented by: Vitamin D (Vitamin D3) 1,000 unit PO DAILY [facility] Last Admin: 09/10/18 11:10 Dose: Not Given Documented by: Medical - PN: A/P - Time Spent With Patient Total time spent is greater than 50% in coordination of care (as documented) at patient's floor/unit and/or counseling patient: - Narrative A/P Narrative: Assessment: *SBO: *Abnormal EKG: No Chest Pain -trop neg x3 -echo *R TKA: *Obese * Plan: -NPO, IVF's -NGT -Gen surg following -Knee per ortho -antiemetics -DVT ppx: per ortho
[2018-09-10] MEDS: FLUTICASONE/SALMETEROL 50/100 INHALER #14 INH SCH ×2 (16:21→21:27)
--- NOTE | 2018-09-10 18:11 | General Surgery Consult Note ---
History of Present Illness Patient information: Note initiated : 09/10/18 at 6:07 pm Service Date, if different from initiated Date: [] Patient: Rosalinda Gilbert 77 y/o F admitted on 09/07/18 for Right Total Knee Arthroplasty Rico . Chief Complaint: [] Reason for consult: abdominal pain Requesting physician: Ronnie Dhillon History of present illness: 77-year-old female who was admitted postoperatively after undergoing right total knee arthroplast 129 August 28. She was scheduled to be discharged but developed increasing abdominal pain and had large-volume emesis greater than [address] shows dilated stomach, small bowel, with probable transition point near the ileocecal valve. She had history of hysterectomy and appendectomy in the past. Nasogastric tube has been placed and she has put out another 1600 cc of bilious fluid. It is probable that she has a near complete obstruction in she will be scheduled for probable laparotomy with adhesiolysis to be done tomorrow. Discussed this with the patient and she is agreeable to proceed. Past History Past medical history: Gastroesophageal reflux disease. Questionable history of Crohn's disease. Past surgical history: Appendectomy. Abdominal hysterectomy and bilateral salpingo-oophorectomy. Cholecystectomy, laparoscopic. Ankle fusion. Right total knee arthroplasty Past family history: History of multiple strokes Medications and Allergies Home Medications Medication Instructions Recorded Confirmed Type linaclotide 290 mcg capsule 290 mcg PO DAILY 03/30/15 08/20/18 History levothyroxine 125 mcg capsule 125 mcg PO ACB 04/07/15 08/20/18 History aspirin 81 mg tablet,delayed 81 mg PO DAILY 06/01/15 08/20/18 History release nortriptyline 75 mg capsule 75 mg PO DAILY cap 06/01/15 08/20/18 History fluticasone 100 mcg-salmeterol 50 1 inh INHALATION BID 10/10/15 08/20/18 History mcg/dose blistr powdr for inhalation gabapentin 100 mg capsule 200 mg PO TID cap 08/28/16 08/20/18 History ALPRAZolam [Xanax] 0.5 mg PO BIDP PRN 08/20/18 08/20/18 History Calcium (Oyster Shell) [Oscal] 500 mg PO TID 08/20/18 08/20/18 History Cholecalciferol (Vitamin D3) 1,000 unit PO DAILY 08/20/18 08/20/18 History [Vitamin D3] Clotrimazole Crm 1% [Mycelex Crm 1 dose TOPICAL BID 08/20/18 08/20/18 History 1%] Dicyclomine 20 mg PO BIDP PRN 08/20/18 08/20/18 History Folic Acid 1 mg PO DAILY 08/20/18 08/20/18 History HYDROcodone/APAP 5/325MG [[place] 1 tab PO Q6HP PRN 08/20/18 08/20/18 History 5-325Mg] Hydroxychloroquine Sulfate 200 mg PO BID 08/20/18 08/20/18 History [Plaquenil] Lactobacillus [Culturelle] 1 cap PO DAILY 08/20/18 08/20/18 History Meloxicam 7.5 mg PO BIDCC 08/20/18 08/20/18 History Naproxen 500 mg PO BID 08/20/18 08/20/18 History Nitroglycerin [Nitrostat] 0.4 mg SL Q5M PRN 08/20/18 08/20/18 History Nortriptyline HCl [Pamelor] 10 mg PO DAILY 08/20/18 08/20/18 History Nystatin 1 dose TOPICAL HSP PRN 08/20/18 08/20/18 History Ondansetron HCl [Zofran] 8 mg PO Q8HP PRN 08/20/18 08/20/18 History Polyethylene Glycol 3350 [Miralax] 17 gm PO HS 08/20/18 08/20/18 History Ranitidine HCl [Zantac] 300 mg PO BID 08/20/18 08/20/18 History Tolterodine Tartrate [Detrol LA] 4 mg PO HS 08/20/18 08/20/18 History chlordiazePOXIDE/CLIDINIUM [Librax] 1 cap PO TIDP PRN 08/20/18 08/20/18 History Docusate Sodium [Colace] 100 mg PO BID #60 cap 09/08/18 Rx oxyCODONE/APAP [Percocet 5-325 mg] 1 - 2 tab PO Q4HP PRN #75 tab 09/08/18 Rx Allergies Allergy/AdvReac Type Severity Reaction Status Date / Time No Known Drug Allergies Allergy Verified 04/08/18 10:26 Exam Temp Pulse Resp BP Pulse Ox 98.9 F 112 H 20 149/82 97 09/10/18 15:23 09/10/18 09:00 09/10/18 15:23 09/10/18 15:23 09/10/18 15:23 - General physical appearance well developed, well nourished, no distress, chronically ill, obese - Eyes PERRL, normal ocular movement - ENT normal pinna, normal nares, normal mucosa, no hearing loss, no congestion - Head Head exam IM: Present: atraumatic, normocephalic - Neck no masses, no bruits, trachea midline, no lymphadenopathy, no venous distension - Cardiovascular Cardiovascular exam IM: Present: normal rate and rhythm, RRR, +S1, +S2. Absent: JVD, tachycardia - Respiratory normal expansion, normal respiratory effort, clear to auscultation - Abdomen Abdomen: Present: soft, tender (moderate tenderness in the midabdomen), bowel sounds (. Good active bowel sounds) Hernia: Present: none - Genitourinary Present: normal external genitalia - Integumentary Present: no rash, no growths, no abnormal pigmentation - Neurologic Present: normal coordination, normal sensation - Musculoskeletal Present: other (. Operative changes right knee with ecchymosis and swelling) - Psychiatric Present: oriented to time, oriented to person, oriented to place, speech is normal, memory intact Results - Labs 09/09/18 20:47 09/10/18 03:30 Abnormal lab results 09/09/18 09/09/18 09/10/18 Range/Units 20:47 20:47 03:30 RBC 3.68 L (4.00-5.20) M/mcL Hgb 10.8 L (12.0-15.0) g/dL Hct 31.5 L (36.0-48.0) % RDW 17.8 H (11.5-14.5) % Gran % 85.3 H (38.0-78.0) % Lymph % (Auto) 4.7 L (15.5-49.0) % Lymph # (Auto) 0.4 L (1.5-4.8) K/mcL Chloride 94 L 93 L (96-108) mmol/L Carbon Dioxide 33 H (22-30) mmol/L Phosphorus 4.6 H (2.7-4.5) mg/dL Diabetes panel 05/01/19 05/02/19 Range/Units 20:47 03:30 Sodium 136 135 (133-145) mmol/L Potassium 4.4 4.5 (3.3-5.1) mmol/L Chloride 94 L 93 L (96-108) mmol/L Carbon Dioxide 33 H 30 (22-30) mmol/L BUN 21 20 (8-23) mg/dl Creatinine 0.8 0.8 (0.6-1.1) mg/dl Glucose 101 101 (70-105) mg/dL Hemoglobin A1c 5.3 (4.0-6.0) % HGB Calcium 9.8 10.1 (8.6-10.4) mg/dl AST 19 (0-37) U/l ALT 8 (0-40) U/l Alkaline Phosphatase 75 (39-117) U/L Total Protein 6.4 (5.9-8.4) gm/dL Albumin 3.5 (3.2-5.2) gm/dL Triglycerides 66 (<150) mg/dl HDL Cholesterol 75 (>40) mg/dl Thyroid panel 09/09/18 Range/Units 20:47 TSH 1.67 (0.27-5.01) uIU/ml Calcium panel 09/09/18 09/10/18 Range/Units 20:47 03:30 Calcium 9.8 10.1 (8.6-10.4) mg/dl Phosphorus 4.6 H (2.7-4.5) mg/dL Albumin 3.5 (3.2-5.2) gm/dL Pituitary panel 09/09/18 09/10/18 Range/Units 20:47 03:30 Sodium 136 135 (133-145) mmol/L Potassium 4.4 4.5 (3.3-5.1) mmol/L Chloride 94 L 93 L (96-108) mmol/L Carbon Dioxide 33 H 30 (22-30) mmol/L BUN 21 20 (8-23) mg/dl Creatinine 0.8 0.8 (0.6-1.1) mg/dl Glucose 101 101 (70-105) mg/dL Calcium 9.8 10.1 (8.6-10.4) mg/dl TSH 1.67 (0.27-5.01) uIU/ml Adrenal panel 09/09/18 09/10/18 Range/Units 20:47 03:30 Sodium 136 135 (133-145) mmol/L Potassium 4.4 4.5 (3.3-5.1) mmol/L Chloride 94 L 93 L (96-108) mmol/L Carbon Dioxide 33 H 30 (22-30) mmol/L BUN 21 20 (8-23) mg/dl Creatinine 0.8 0.8 (0.6-1.1) mg/dl Glucose 101 101 (70-105) mg/dL Calcium 9.8 10.1 (8.6-10.4) mg/dl Total Bilirubin 0.3 (0.0-1.0) mg/dL AST 19 (0-37) U/l ALT 8 (0-40) U/l Alkaline Phosphatase 75 (39-117) U/L Total Protein 6.4 (5.9-8.4) gm/dL Albumin 3.5 (3.2-5.2) gm/dL All other labs normal. Assessment and Plan (1) Small bowel obstruction Nasogastric suction until the morning. Follow-up abdominal x-rays prior to scheduling surgery. Cover with IV antibiotics pending potential surgery. Replace large volume gastric output with normal saline Status: Acute (2) Inflammatory arthritis Status: Chronic (3) Sjogren's syndrome Status: Chronic (4) GERD (gastroesophageal reflux disease) Status: Acute (5) Crohns disease Status: Chronic
[2018-09-10] MEDS ORDERED: PROMETHAZINE 25 MG/ML VIAL IV PRN (18:25)
[2018-09-10] MEDS ORDERED: LORazepam 2 MG/ML VIAL IV PRN (18:25)
[2018-09-10] MEDS ORDERED: ONDANSETRON 4 MG/2 ML VIAL IV PRN (18:25)
[2018-09-10] MEDS ORDERED: HYDROmorphone 2 MG/ML VIAL ONE (19:18)
[2018-09-10] MEDS: 0.9 % SODIUM CHLORIDE 1,000 ML IV SCH (19:22)
[2018-09-10] MEDS: PIPERACILLIN SODIUM/TAZOBACTAM 3.375 GM in DEXTROSE 5% IN WATER 50 ML IV SCH ×2 (19:25→23:54)
[2018-09-10] MEDS: METOCLOPRAMIDE 10 MG/2 ML VIAL IV SCH (23:53)
[2018-09-11] MEDS: 0.45 % SODIUM CHLORIDE 1,000 ML IV SCH (00:30)
[2018-09-11] MEDS: 0.9 % SODIUM CHLORIDE 1,000 ML IV SCH ×4 (03:17→20:25)
[2018-09-11 05:35] LABS: Basophils # (Auto) 0 K/mcL (0.0-0.3); Basophils % (Auto) 0.2 % (0.0-2.0); Eosinophils # (Auto) 0.1 K/mcL (0.0-0.7); Eosinophils % (Auto) 2.5 % (0.0-7.0); Granulocytes % (Auto) 73.5 % (38.0-78.0); Lymphocytes # (Auto) 0.6 K/mcL (1.5-4.8); Lymphocytes % (Auto) 10.7 % (15.5-49.0); Mean Cell Volume 87.6 fL (80.0-100.0); Mean Corpuscular HGB Conc 32.1 g/dL (31.0-36.0); Monocytes # (Auto) 0.7 K/mcL (0.1-0.9); Monocytes % (Auto) 13.1 % (1.0-12.0); Platelet Count 233 K/mcL (140-440); RBC 3.25 M/mcL (4.00-5.20); Red Cell Distribution Width 18.9 % (11.5-14.5)
[2018-09-11] MEDS: PIPERACILLIN SODIUM/TAZOBACTAM 3.375 GM in DEXTROSE 5% IN WATER 50 ML IV SCH ×4 (05:45→23:44)
[2018-09-11] MEDS: METOCLOPRAMIDE 10 MG/2 ML VIAL IV SCH ×4 (05:45→23:43)
[2018-09-11] MEDS: 0.9 % SODIUM CHLORIDE 10 ML SYRINGE IV SCH ×3 (05:46→20:26)
[2018-09-11 06:43] LABS: ALT/SGPT 9 U/l (0-40); Albumin 2.7 gm/dL (3.2-5.2); Albumin/Globulin Ratio 1.1 (1.0-2.3); Alkaline Phosphatase 71 U/L (39-117); Bilirubin,Direct 0.2 mg/dL (0.0-0.3); Blood Urea Nitrogen 15 mg/dl (8-23); Gamma Glutamyl Transpeptidase 28 U/L (5-36)
--- NOTE | 2018-09-11 07:09 | Internal Med Progress Note ---
Medical - PN: Subj Patient information: Note initiated : 09/11/18 at 7:04 am Service Date, if different from initiated Date: [] Patient: Rosalinda Gilbert a 77 y/o F admitted on 09/07/18 for Right Total Knee Arthroplasty Rico . Chief Complaint: [] Interval history: Ms. Gilbert is a 77 year old F admitted to the hospital under the Ortho service for knee replacement, she had a knee replacement done on the . The patient was doing well until this morning. She developed abdominal discomfort and has been throwing up since then. The patient had an episode of diaphoresis, some reflux symptoms and epigastric distress, tachycardia, and an EKG was done. There were changes in the patient's EKG compared to her previous preop EKG. Troponin was negative medicine was consulted for further management. On my evaluation patient was feeling nauseous and wanting to throw up, she did not have any blood in the vomitus, she was in mild distress from her nausea otherwise had no other complaints. On my evaluation she denied any headache changes in vision, she did admit to some dizziness before, she denied any chest pain chest discomfort or chest tightness denied any palpitations or shortness of breath. She did admit to abdominal discomfort nausea and vomiting. No bowel movements. The patient denies any new joint pain except there is pain in the knee from surgery, she denies any skin rashes denies any depression or anxiety. [place] Her troponin initial draw was negative. EKG showed sinus rhythm, right bundle branch block first-degree heart block and Q waves in V4 to V6 which are new compared to her previous EKG 09/10 Patient seen examined, still very nauseaus, despite reglan and zofran no events on tele, on asa pt trop x 3 is negative EKG changes likely from GI symptoms Plan to get CT abdomen and pelvix IV PPI and phenergan labs unremarkable, amylase and lipase is negative. lft normal 5/3 Poor sleep from interruptions. Had several small bowel movements this morning. Has some crampy abdominal pain but otherwise no new complaints. Review of Systems: denies headache/fever/chills/nausea/vomiting/chest /cough/dyspnea/diarrhea. Otherwise see above. - Constitutional Vitals: Vital Signs Temp Pulse Resp BP Pulse Ox 97.2 F 64 16 128/65 96 09/11/18 04:00 09/11/18 04:00 09/11/18 04:00 09/11/18 04:00 09/11/18 04:00 Period Temp Pulse Resp BP Sys/Adler Pulse Ox Last 24 Hr 97.2 F-98.9 F 64-112 12-20 100-149/53-82 93-98 Intake and Output 09/10/18 09/11/18 09/11/18 21:59 05:59 13:59 Intake Total 642 1050 50 Output Total 2450 100 Balance -1808 950 50 Weight 113.171 kg Intake & Output: Intake & Output 09/10/18 09/11/18 09/11/18 21:59 05:59 13:59 Intake Total 642 1050 50 Output Total 2450 100 Balance -1808 950 50 Weight 113.171 kg Intake: IV 642 1050 50 Sodium Chloride 0.45% 1,000 ml 592 @ 100 mls/hr IV .Q10H [facility] Rx#: [id number] Sodium Chloride 0.9% 1,000 ml @ 1000 150 mls/hr IV .Q6H40M [facility] Rx#: [id number] Zosyn 3.375 gm In Dextrose 5% 50 50 50 in Water 50 ml @ 100 mls/hr IV Q6H [facility] Rx#:[id number] Output: Gastric Drainage 1800 100 Right Nare NG/OG 1800 100 Void Amount 650 Other: Urine Appearance Cloudy Urine Color Dark Yellow Urine Odor Strong Exam: General: Alert, Awake, No acute Distress, obese Eyes/N/T: EOMI, Head/Neck: neck supple, CV: RRR, No murmurs, Pulm: Clear b/l, no wheezing/rhonchi/rales Abd: Soft, bowel sounds present, NG tube in place Ext: no clubbing/cyanosis/edema Neuro: Alert, no focal deficits, moves all extremities, Skin: warm/dry Medical - PN: Obj Da - Labs CBC & Chem 7: 09/11/18 04:00 09/11/18 04:00 Labs: Abnormal Lab Results 09/11/18 09/11/18 09/10/18 04:00 04:00 03:30 RBC 3.25 L Hgb 9.1 L Hct 28.4 L RDW 18.9 H Gran % Lymph % (Auto) 10.7 L [place] % (Auto) 13.1 H Lymph # (Auto) 0.6 L Chloride 93 L Carbon Dioxide Calcium 8.3 L Phosphorus Total Protein 5.2 L Albumin 2.7 L 09/09/18 09/09/18 20:47 20:47 RBC 3.68 L Hgb 10.8 L Hct 31.5 L RDW 17.8 H Gran % 85.3 H Lymph % (Auto) 4.7 L [place] % (Auto) Lymph # (Auto) 0.4 L Chloride 94 L Carbon Dioxide 33 H Calcium Phosphorus 4.6 H Total Protein Albumin Meds: Medications Hydromorphone HCl (Dilaudid) 1 mg IV Q4HP PRN PRN Reason: PAIN LEVEL > 6 Sodium Chloride (Sodium Chloride 0.9%) 1,000 mls @ 150 mls/hr IV .Q6H40M [facility] Last Admin: 09/11/18 03:17 Dose: 150 mls/hr Documented by: Piperacillin Sod/Tazobactam (Sod 3.375 gm/ Dextrose) 50 mls @ 100 mls/hr IV Q6H [facility]; Protocol Last Infusion: 09/11/18 06:47 Dose: Infused Documented by: Levothyroxine Sodium (Synthroid) 125 mcg IV QAMAC [facility] Lorazepam (Ativan) 1 mg IV Q6HP PRN PRN Reason: ANXIETY/SEDATION Metoclopramide HCl (Reglan) 10 mg IV Q6 [facility] Last Admin: 09/11/18 05:45 Dose: 10 mg Documented by: Nitroglycerin (Nitrostat) 0.4 mg SL Q5M PRN PRN Reason: Chest Pain Nortriptyline HCl (Pamelor) 75 mg PO DAILY [facility] Last Admin: 09/10/18 11:14 Dose: Not Given Documented by: Ondansetron HCl (Zofran) 4 mg IV Q4HP PRN PRN Reason: Nausea And Vomiting Last Admin: 09/10/18 04:22 Dose: 4 mg Documented by: Ondansetron HCl (Zofran) 4 mg IV Q4HP PRN PRN Reason: Nausea And Vomiting Pantoprazole Sodium (Protonix) 40 mg IV BIDAC [facility] Last Admin: 09/10/18 18:17 Dose: 40 mg Documented by: Promethazine HCl (Phenergan) 12.5 mg IV Q4HP PRN PRN Reason: Nausea And Vomiting Last Admin: 09/10/18 08:10 Dose: 12.5 mg Documented by: Fluticasone/Salmeterol (Advair 100-50 Diskus) 1 puff INH BID [facility] Last Admin: 09/10/18 21:27 Dose: Not Given Documented by: Sodium Chloride (Saline Flush) 10 ml IV Q8 [facility] Last Admin: 09/11/18 05:46 Dose: Not Given Documented by: Throat Lozenges (Cepacol) 1 lozenge PO PRN PRN PRN Reason: Sore Throat Medical - PN: A/P - Time Spent With Patient Total time spent is greater than 50% in coordination of care (as documented) at patient's floor/unit and/or counseling patient: - Narrative A/P Narrative: Assessment: *pSBO: improving *Abnormal EKG: No Chest Pain -trop neg x3 -echo with normal LV, no WMA, grade I diastolic dysfxn *R TKA: *Anemia, post-op + dilutional: *Obese * Plan: -NPO, IVF's -NGT -Gen surg following; f/u AXR, small bowel follow through -Knee per ortho -antiemetics -DVT ppx: per ortho
[2018-09-11] MEDS: LEVOTHYROXINE 100 MCG VIAL IV SCH (07:30)
[2018-09-11] MEDS: PANTOPRAZOLE 40 MG VIAL IV SCH ×2 (07:30→17:03)
[2018-09-11] MEDS ORDERED: PANTOPRAZOLE 40 MG VIAL IV SCH (07:30)
--- NOTE | 2018-09-11 08:20 | XRay Report ---
CLINICAL INFORMATION: Small bowel obstruction TECHNIQUE: AP supine and upright abdomen COMPARISON: Previous CT scan dated . Previous plain film examination dated 09/10/2018 FINDINGS: Esophagogastric tube with its tip in the proximal stomach. This could be advanced. There are surgical clips in the right upper quadrant. There is gas-filled small bowel in the midabdomen. Cross-sectional diameter small bowel measures approximately 3.5 cm. This is slightly dilated. There is gas and fecal material within the colon. Findings are suggestive of partial small bowel obstruction. No pneumoperitoneum. No biliary or portal venous gas. No pneumatosis. IMPRESSION: Dilated gas-filled small bowel in the midabdomen. Findings are consistent with partial mechanical small bowel obstruction Interpreted and Authenticated by: Rock Mendoza 09/11/18
[2018-09-11] MEDS: HYDROmorphone 2 MG/ML VIAL IV PRN ×2 (09:10→21:50)
[2018-09-11] MEDS: FLUTICASONE/SALMETEROL 50/100 INHALER #14 INH SCH ×3 (09:59→20:25)
[2018-09-11] MEDS: NORTRIPTYLINE 25 MG CAPSULE PO SCH (11:12)
[2018-09-11] MEDS: PROMETHAZINE 25 MG/ML VIAL IV PRN (11:12)
--- NOTE | 2018-09-11 11:48 | General Surgery Progress Note ---
Subjective Patient reports: feels better, pain is less, flatus, no bowel movement, afebrile Narrative: Note initiated : 09/11/18 at 11:47 am Service Date, if different from initiated Date: [] Patient: Rosalinda Gilbert 77 y/o F admitted on 09/07/18 for Right Total Knee Arthroplasty [facility] . Chief Complaint: [patient is doing well. She started having flatus Last evening and has had decrease in abdominal discomfort. Abdominal x-rays shows more gas in small bowel extending into the colon. Her bowel is dilated, however. She has been started on Gastrografin small bowel follow-through and after 1-1/2 hours, the contrast is in the right colon and transverse colon. White blood count 5.4, hemoglobin 9.1, hematocrit 28.4, potassium 3.7, BUN 15, creatinine 0.7.] Objective Temp Pulse Resp BP Pulse Ox 97.8 F 64 14 157/79 97 09/11/18 11:37 09/11/18 04:00 09/11/18 11:37 09/11/18 11:37 09/11/18 11:37 - Additional Data Intake & Output - Last 24 hours: Intake & Output 09/09/18 09/10/18 09/11/18 09/12/18 05:59 05:59 05:59 05:59 Intake Total 2790 450 3692 50 Output Total 600 3860 3675 Balance 2190 -3410 17 50 Weight 255 lb 256 lb 249 lb 8 oz - General physical appearance well developed, well nourished, no distress, chronically ill - Eyes PERRL, normal ocular movement - ENT normal pinna, normal nares, normal mucosa, no hearing loss, no congestion - Neck no masses, no bruits, trachea midline, no lymphadenopathy, no venous distension - Respiratory normal expansion, normal respiratory effort, clear to auscultation - Cardiovascular Cardiovascular exam: Present: normal rate and rhythm, RRR, +S1, +S2. Absent: JVD, tachycardia - Abdomen tender (mild tenderness in the midabdomen; good active bowel sounds; much less distention), bowel sounds (present), surgical scars (none), masses (none) - Integumentary no rash, no growths, no abnormal pigmentation - Musculoskeletal normal gait, normal posture - Psychiatric oriented to time, oriented to person, oriented to place, speech is normal, memory intact - Labs 09/11/18 04:00 09/11/18 04:00 Diabetes panel 09/11/18 Range/Units 04:00 Sodium 139 (133-145) mmol/L Potassium 3.7 (3.3-5.1) mmol/L Chloride 98 (96-108) mmol/L Carbon Dioxide 28 (22-30) mmol/L BUN 15 (8-23) mg/dl Creatinine 0.7 (0.6-1.1) mg/dl Glucose 80 (70-105) mg/dL Calcium 8.3 L (8.6-10.4) mg/dl AST 24 (0-37) U/l ALT 9 (0-40) U/l Alkaline Phosphatase 71 (39-117) U/L Total Protein 5.2 L (5.9-8.4) gm/dL Albumin 2.7 L (3.2-5.2) gm/dL Triglycerides 48 (<150) mg/dl Calcium panel 09/11/18 Range/Units 04:00 Calcium 8.3 L (8.6-10.4) mg/dl Phosphorus 3.3 (2.7-4.5) mg/dL Albumin 2.7 L (3.2-5.2) gm/dL Pituitary panel 09/11/18 Range/Units 04:00 Sodium 139 (133-145) mmol/L Potassium 3.7 (3.3-5.1) mmol/L Chloride 98 (96-108) mmol/L Carbon Dioxide 28 (22-30) mmol/L BUN 15 (8-23) mg/dl Creatinine 0.7 (0.6-1.1) mg/dl Glucose 80 (70-105) mg/dL Calcium 8.3 L (8.6-10.4) mg/dl Adrenal panel 09/11/18 Range/Units 04:00 Sodium 139 (133-145) mmol/L Potassium 3.7 (3.3-5.1) mmol/L Chloride 98 (96-108) mmol/L Carbon Dioxide 28 (22-30) mmol/L BUN 15 (8-23) mg/dl Creatinine 0.7 (0.6-1.1) mg/dl Glucose 80 (70-105) mg/dL Calcium 8.3 L (8.6-10.4) mg/dl Total Bilirubin 0.6 (0.0-1.0) mg/dL AST 24 (0-37) U/l ALT 9 (0-40) U/l Alkaline Phosphatase 71 (39-117) U/L Total Protein 5.2 L (5.9-8.4) gm/dL Albumin 2.7 L (3.2-5.2) gm/dL Assessment and Plan (1) Small bowel obstruction Status: Acute Assessment and plan: We'll continue to follow. Small bowel follow-through. Based on early transit of contrast suspect that he will have bowel movements later today and nasogastric tube can be discontinued. Current Visit: Yes (2) Inflammatory arthritis Status: Chronic Current Visit: No (3) Sjogren's syndrome Status: Chronic Current Visit: No (4) GERD (gastroesophageal reflux disease) Status: Acute Current Visit: No (5) Crohns disease Status: Chronic Current Visit: No - Time Spent With Patient Total time spent is greater than 50% in coordination of care (as documented) at patient's floor/unit and/or counseling patient:
[2018-09-11] MEDS ORDERED: DIATRIZOATE MEGLU/DIATRIZO SOD 30 ML BOTTLE PO ONE (12:29)
--- NOTE | 2018-09-11 13:10 | XRay Report ---
CLINICAL INFORMATION: History of mechanical small bowel obstruction TECHNIQUE: Water-soluble contrast material was placed in the patient's nasogastric tube. Images 2 3 hours post ingestion obtained COMPARISON: Previous CT scan dated . Previous plain film examination dated 09/11/2018 FINDINGS: Small bowel is mildly prominent. There is contrast material in the ascending colon by one hour postingestion. By 3 hours postingestion there is contrast material throughout the entire colon including the rectum. Appearance is not consistent with high-grade small bowel obstruction. There is no fixed or focal lesion. IMPRESSION: 1. Barium in the colon by one hour postingestion. No high-grade small bowel obstruction 2. No focal abnormality Interpreted and Authenticated by: Rock Mendoza 09/11/18
--- NOTE | 2018-09-11 15:28 | Orthopedic Progress Note ---
Subjective Patient information: Note initiated : 09/11/18 at 3:26 pm Service Date, if different from initiated Date: [] Patient: Rosalinda Gilbert 77 y/o F admitted on 09/07/18 for Right Total Knee Arthroplasty [facility] . Chief Complaint: [] Principal diagnosis: feeling much better and has now gone to the bathroom with 3 bms Objective Vital signs: Vital Signs Temp Pulse Resp BP Pulse Ox 09/11/18 15:03 98.6 F 16 124/71 94 09/11/18 11:37 97.8 F 14 157/79 97 09/11/18 08:00 97.4 F 16 146/72 96 09/11/18 04:00 97.2 F 64 16 128/65 96 09/11/18 00:00 75 09/10/18 23:58 97.8 F 74 12 129/53 98 09/10/18 22:32 77 09/10/18 19:40 98.5 F 96 H 12 138/58 98 Intake and Output 09/11/18 09/11/18 09/11/18 05:59 13:59 21:59 Intake Total 1050 1160 Output Total 100 100 250 Balance 950 1060 -250 Intake: IV 1050 1100 Sodium Chloride 0.9% 1,000 ml @ 1000 1000 150 mls/hr IV .Q6H40M [facility] Rx#: [id number] Zosyn 3.375 gm In Dextrose 5% 50 100 in Water 50 ml @ 100 mls/hr IV Q6H [facility] Rx#:[id number] Oral 60 Output: Gastric Drainage 100 Right Nare NG/OG 100 Stool 100 250 Other: Stool Size Small Small Stool Color Brown Brown Stool Consistency Liquid Liquid Lexis Lexis # Bowel Movements 1 # of times incontinent of 0 Bowels Weight 249 lb 8 oz Patient Weight 09/12/18 05:59 Weight 249 lb 8 oz Intake & Output: Intake & Output 09/11/18 09/11/18 09/11/18 05:59 13:59 21:59 Intake Total 1050 1160 Output Total 100 100 250 Balance 950 1060 -250 Weight 249 lb 8 oz Intake: IV 1050 1100 Sodium Chloride 0.9% 1,000 ml @ 1000 1000 150 mls/hr IV .Q6H40M [facility] Rx#: [id number] Zosyn 3.375 gm In Dextrose 5% 50 100 in Water 50 ml @ 100 mls/hr IV Q6H [facility] Rx#:[id number] Oral 60 Output: Gastric Drainage 100 Right Nare NG/OG 100 Stool 100 250 Other: Stool Size Small Small Stool Color Brown Brown Stool Consistency Liquid Liquid Lexis Lexis # Bowel Movements 1 # of times incontinent of 0 Bowels Incision: Yes healing Incision clean and dry: Yes Dressing: Yes clean Weight bearing status: full Neurological exam IM: Yes alert, Yes oriented X3, Yes neurovascular intact (dc to [place] [employer] swing bed when DR MARTINEZ releases her to do so) - Labs CBC & BMP: 09/11/18 04:00 09/11/18 04:00 Labs: Orthopedic Labs 08/20/18 17:35 PT 13.7 INR 1.0 APTT 34 09/11/18 09/09/18 09/08/18 04:00 20:47 04:20 Hgb 9.1 L 10.8 L Hct 28.4 L 31.5 L 31.4 L 08/20/18 17:35 Hgb 11.6 L Hct 36.2
[2018-09-12] MEDS: 0.9 % SODIUM CHLORIDE 1,000 ML IV SCH (03:28)
[2018-09-12] MEDS: PIPERACILLIN SODIUM/TAZOBACTAM 3.375 GM in DEXTROSE 5% IN WATER 50 ML IV SCH ×4 (05:17→23:40)
[2018-09-12] MEDS: 0.9 % SODIUM CHLORIDE 10 ML SYRINGE IV SCH ×3 (05:18→21:27)
[2018-09-12] MEDS: METOCLOPRAMIDE 10 MG/2 ML VIAL IV SCH (05:18)
[2018-09-12 05:44] LABS: Basophils # (Auto) 0 K/mcL (0.0-0.3); Basophils % (Auto) 0.1 % (0.0-2.0); Eosinophils # (Auto) 0.2 K/mcL (0.0-0.7); Eosinophils % (Auto) 3.8 % (0.0-7.0); Granulocytes % (Auto) 68.9 % (38.0-78.0); Lymphocytes # (Auto) 0.6 K/mcL (1.5-4.8); Lymphocytes % (Auto) 12.9 % (15.5-49.0); Mean Cell Volume 87.8 fL (80.0-100.0); Mean Corpuscular HGB Conc 31.9 g/dL (31.0-36.0); Monocytes # (Auto) 0.7 K/mcL (0.1-0.9); Monocytes % (Auto) 14.3 % (1.0-12.0); Platelet Count 227 K/mcL (140-440); RBC 3.14 M/mcL (4.00-5.20); Red Cell Distribution Width 18.1 % (11.5-14.5)
[2018-09-12 06:01] LABS: ALT/SGPT 10 U/l (0-40); Albumin 2.9 gm/dL (3.2-5.2); Albumin/Globulin Ratio 1.3 (1.0-2.3); Alkaline Phosphatase 67 U/L (39-117); Bilirubin,Direct < 0.2 mg/dL (0.0-0.3); Blood Urea Nitrogen 13 mg/dl (8-23); Gamma Glutamyl Transpeptidase 25 U/L (5-36); Uric Acid 5.7 mg/dL (2.5-8.0)
[2018-09-12] MEDS ORDERED: LEVOTHYROXINE 125 MCG TABLET PO SCH (07:30)
[2018-09-12] MEDS: PANTOPRAZOLE 40 MG VIAL IV SCH ×2 (07:36→17:25)
[2018-09-12] MEDS: LEVOTHYROXINE 100 MCG VIAL IV SCH (07:36)
[2018-09-12] MEDS ORDERED: POTASSIUM CHLORIDE 20 MEQ/15 ML ML PO ONE (08:09)
--- NOTE | 2018-09-12 08:10 | Internal Med Progress Note ---
Medical - PN: Subj Patient information: Note initiated : 09/12/18 at 8:06 am Service Date, if different from initiated Date: [] Patient: Rosalinda Gilbert a 77 y/o F admitted on 09/07/18 for Right Total Knee Arthroplasty Rico . Chief Complaint: [] Interval history: Ms. Gilbert is a 77 year old F admitted to the hospital under the Ortho service for knee replacement, she had a knee replacement done on the . The patient was doing well until this morning. She developed abdominal discomfort and has been throwing up since then. The patient had an episode of diaphoresis, some reflux symptoms and epigastric distress, tachycardia, and an EKG was done. There were changes in the patient's EKG compared to her previous preop EKG. Troponin was negative medicine was consulted for further management. On my evaluation patient was feeling nauseous and wanting to throw up, she did not have any blood in the vomitus, she was in mild distress from her nausea otherwise had no other complaints. On my evaluation she denied any headache changes in vision, she did admit to some dizziness before, she denied any chest pain chest discomfort or chest tightness denied any palpitations or shortness of breath. She did admit to abdominal discomfort nausea and vomiting. No bowel movements. The patient denies any new joint pain except there is pain in the knee from surgery, she denies any skin rashes denies any depression or anxiety. [place] Her troponin initial draw was negative. EKG showed sinus rhythm, right bundle branch block first-degree heart block and Q waves in V4 to V6 which are new compared to her previous EKG 09/10 Patient seen examined, still very nauseaus, despite reglan and zofran no events on tele, on asa pt trop x 3 is negative EKG changes likely from GI symptoms Plan to get CT abdomen and pelvix IV PPI and phenergan labs unremarkable, amylase and lipase is negative. lft normal 5/3 Poor sleep from interruptions. Had several small bowel movements this morning. Has some crampy abdominal pain but otherwise no new complaints. 5/4 Feeling better. Having bowel movements. No new complaints. Tolerating oral intake. Review of Systems: denies headache/fever/chills/nausea/vomiting/chest /cough/dyspnea/diarrhea. Otherwise see above. - Constitutional Vitals: Vital Signs Temp Pulse Resp BP Pulse Ox 97.7 F 64 16 140/76 92 09/12/18 07:47 09/11/18 04:00 09/12/18 07:47 09/12/18 07:47 09/12/18 07:47 Period Temp Pulse Resp BP Sys/Adler Pulse Ox Last 24 Hr 97.7 F-98.6 F 14-18 117-157/48-79 92-97 Intake and Output 09/11/18 09/12/18 09/12/18 21:59 05:59 13:59 Intake Total 1650 1640 647 Output Total 475 325 Balance 1175 1315 647 Weight 112.536 kg Intake & Output: Intake & Output 09/11/18 09/12/18 09/12/18 21:59 05:59 13:59 Intake Total 1650 1640 647 Output Total 475 325 Balance 1175 1315 647 Weight 112.536 kg Intake: IV 1050 1050 647 Sodium Chloride 0.9% 1,000 ml @ 1000 1000 597 150 mls/hr IV .Q6H40M [facility] Rx#: [id number] Zosyn 3.375 gm In Dextrose 5% 50 50 50 in Water 50 ml @ 100 mls/hr IV Q6H [facility] Rx#:[id number] Oral 600 590 Output: Urine/Stool Mix 225 325 Stool 250 Other: Meal Dinner Percent of Meal Consumed 50% Stool Size Small Stool Color Brown Stool Consistency Liquid Lexis Exam: General: Alert, Awake, No acute Distress, obese Eyes/N/T: EOMI, Head/Neck: neck supple, CV: RRR, No murmurs, Pulm: Clear b/l, no wheezing/rhonchi/rales Abd: Soft, bowel sounds present, Ext: no clubbing/cyanosis/edema Neuro: Alert, no focal deficits, moves all extremities, Skin: warm/dry Medical - PN: Obj Da - Labs CBC & Chem 7: 09/12/18 04:00 09/12/18 04:00 Labs: Abnormal Lab Results 09/12/18 09/12/18 09/11/18 04:00 04:00 04:00 RBC 3.14 L Hgb 8.8 L Hct 27.6 L RDW 18.1 H Gran % Lymph % (Auto) 12.9 L [place] % (Auto) 14.3 H Lymph # (Auto) 0.6 L Potassium 3.0 L Chloride Carbon Dioxide Calcium 7.8 L 8.3 L Phosphorus 2.5 L Total Protein 5.2 L 5.2 L Albumin 2.9 L 2.7 L 09/11/18 09/10/18 09/09/18 04:00 03:30 20:47 RBC 3.25 L Hgb 9.1 L Hct 28.4 L RDW 18.9 H Gran % Lymph % (Auto) 10.7 L [place] % (Auto) 13.1 H Lymph # (Auto) 0.6 L Potassium Chloride 93 L 94 L Carbon Dioxide 33 H Calcium Phosphorus 4.6 H Total Protein Albumin 09/09/18 20:47 RBC 3.68 L Hgb 10.8 L Hct 31.5 L RDW 17.8 H Gran % 85.3 H Lymph % (Auto) 4.7 L [place] % (Auto) Lymph # (Auto) 0.4 L Potassium Chloride Carbon Dioxide Calcium Phosphorus Total Protein Albumin Meds: Medications Hydromorphone HCl (Dilaudid) 1 mg IV Q4HP PRN PRN Reason: PAIN LEVEL > 6 Last Admin: 09/11/18 21:50 Dose: 1 mg Documented by: Sodium Chloride (Sodium Chloride 0.9%) 1,000 mls @ 150 mls/hr IV .Q6H40M [facility] Last Infusion: 09/12/18 07:27 Dose: 0 mls/hr Documented by: Piperacillin Sod/Tazobactam (Sod 3.375 gm/ Dextrose) 50 mls @ 100 mls/hr IV Q6H [facility]; Protocol Last Infusion: 09/12/18 07:27 Dose: Infused Documented by: Levothyroxine Sodium (Synthroid) 125 mcg IV QAMAC [facility] Last Admin: 09/12/18 07:36 Dose: 125 mcg Documented by: Lorazepam (Ativan) 1 mg IV Q6HP PRN PRN Reason: ANXIETY/SEDATION Metoclopramide HCl (Reglan) 10 mg IV Q6 [facility] Last Admin: 09/12/18 05:18 Dose: 10 mg Documented by: Nitroglycerin (Nitrostat) 0.4 mg SL Q5M PRN PRN Reason: Chest Pain Nortriptyline HCl (Pamelor) 75 mg PO DAILY [facility] Last Admin: 09/11/18 11:12 Dose: Not Given Documented by: Ondansetron HCl (Zofran) 4 mg IV Q4HP PRN PRN Reason: Nausea And Vomiting Pantoprazole Sodium (Protonix) 40 mg IV BIDAC [facility] Last Admin: 09/12/18 07:36 Dose: 40 mg Documented by: Promethazine HCl (Phenergan) 12.5 mg IV Q4HP PRN PRN Reason: Nausea And Vomiting Last Admin: 09/11/18 11:12 Dose: 12.5 mg Documented by: Fluticasone/Salmeterol (Advair 100-50 Diskus) 1 puff INH BID [facility] Last Admin: 09/11/18 20:25 Dose: Not Given Documented by: Sodium Chloride (Saline Flush) 10 ml IV Q8 [facility] Last Admin: 09/12/18 05:18 Dose: 10 ml Documented by: Throat Lozenges (Cepacol) 1 lozenge PO PRN PRN PRN Reason: Sore Throat Medical - PN: A/P - Time Spent With Patient Total time spent is greater than 50% in coordination of care (as documented) at patient's floor/unit and/or counseling patient: - Narrative A/P Narrative: Assessment: *pSBO: improving *Abnormal EKG: No Chest Pain -trop neg x3 -echo with normal LV, no WMA, grade I diastolic dysfxn *R TKA: *Anemia, post-op + dilutional: *Obese *hypokalemia Plan: -diet per surg -Gen surg following; -Knee per ortho -monitor electrolytes and replace -antiemetics -pt/ot -DVT ppx: per ortho
[2018-09-12] MEDS ORDERED: HYDROcodone/APAP 5/325MG TABLET PO PRN (08:54)
[2018-09-12] MEDS ORDERED: MELOXICAM 7.5 MG TABLET PO SCH (09:00)
[2018-09-12] MEDS ORDERED: LACTOBACILLUS 1 CAPSULE PO SCH (09:00)
[2018-09-12] MEDS ORDERED: DOCUSATE SODIUM 100 MG CAPSULE PO SCH (09:00)
[2018-09-12] MEDS ORDERED: FOLIC ACID 1 MG TABLET PO SCH (09:00)
[2018-09-12] MEDS ORDERED: VITAMIN D3 1,000 UNIT TABLET PO SCH (09:00)
[2018-09-12] MEDS ORDERED: CALCIUM (OYSTER SHELL) 500 MG TABLET PO SCH (09:00)
[2018-09-12] MEDS ORDERED: ASPIRIN 325 MG ENTERIC COATED TABLET PO SCH (09:00)
[2018-09-12] MEDS ORDERED: oxyCODONE/APAP 5/325MG TABLET PO PRN (09:40)
[2018-09-12] MEDS: NORTRIPTYLINE 25 MG CAPSULE PO SCH (10:25)
[2018-09-12] MEDS: FLUTICASONE/SALMETEROL 50/100 INHALER #14 INH SCH ×2 (10:27→21:26)
[2018-09-12] MEDS ORDERED: BENZOCAINE/MENTHOL 1 LOZENGE PO PRN (10:58)
[2018-09-12] MEDS ORDERED: ONDANSETRON 4 MG/2 ML VIAL IV PRN (10:58)
[2018-09-12] MEDS ORDERED: PROMETHAZINE 25 MG/ML VIAL IV PRN (10:58)
[2018-09-12] MEDS ORDERED: LORazepam 2 MG/ML VIAL IV PRN (10:58)
[2018-09-12] MEDS ORDERED: NITROGLYCERIN 0.4 MG TAB.SUBL SL PRN (10:58)
[2018-09-12] MEDS ORDERED: HYDROmorphone 2 MG/ML VIAL IV PRN (10:58)
--- NOTE | 2018-09-12 13:47 | General Surgery Progress Note ---
Subjective Patient reports: feels better, pain is less, tolerating liquids well, flatus, bowel movement, diarrhea, afebrile Narrative: Note initiated : 09/12/18 at 1:44 pm Service Date, if different from initiated Date: [] Patient: Rosalinda Gilbert 77 y/o F admitted on 09/07/18 for Right Total Knee Arthroplasty Rico . Chief Complaint: [patient is doing well. Her small bowel follow-through was completed on yesterday and she had multiple large volume bowel movements. She is tolerating a liquid diet without difficulty. She denies any nausea or abdominal pain. White blood count 4.8, hemoglobin 8.8, hematocrit 27.6, potassium 3, BUN 13, creatinine 0.6, phosphorus 2.5.] Objective Temp Pulse Resp BP Pulse Ox 97.7 F 64 20 145/78 96 09/12/18 12:00 09/11/18 04:00 09/12/18 12:00 09/12/18 12:00 09/12/18 12:00 - Additional Data Intake & Output - Last 24 hours: Intake & Output 09/10/18 09/11/18 09/12/18 09/13/18 05:59 05:59 05:59 05:59 Intake Total 450 3692 4450 1297 Output Total 3860 3675 900 425 Balance -3410 17 3550 872 Weight 256 lb 249 lb 8 oz 248 lb 1.6 oz - General physical appearance well developed, well nourished, no distress - Eyes PERRL, normal ocular movement - ENT normal pinna, normal nares, normal mucosa, no hearing loss, no congestion - Neck no masses, no bruits, trachea midline, no lymphadenopathy, no venous distension - Respiratory normal expansion, normal respiratory effort, clear to percussion, clear to auscultation - Cardiovascular Cardiovascular exam: Present: normal rate and rhythm, RRR, +S1, +S2. Absent: JVD, tachycardia - Abdomen non tender (abdomen is nondistended and is nontender. She has good active bowel sounds. There is no guarding.), bowel sounds (present), surgical scars (none), masses (none) - Neurologic normal coordination, normal sensation - Psychiatric oriented to time, oriented to person, oriented to place, speech is normal, memory intact - Labs 09/12/18 04:00 09/12/18 04:00 Diabetes panel 09/12/18 Range/Units 04:00 Sodium 141 (133-145) mmol/L Potassium 3.0 L (3.3-5.1) mmol/L Chloride 103 (96-108) mmol/L Carbon Dioxide 29 (22-30) mmol/L BUN 13 (8-23) mg/dl Creatinine 0.6 (0.6-1.1) mg/dl Glucose 92 (70-105) mg/dL Calcium 7.8 L (8.6-10.4) mg/dl AST 23 (0-37) U/l ALT 10 (0-40) U/l Alkaline Phosphatase 67 (39-117) U/L Total Protein 5.2 L (5.9-8.4) gm/dL Albumin 2.9 L (3.2-5.2) gm/dL Triglycerides 49 (<150) mg/dl Calcium panel 09/12/18 Range/Units 04:00 Calcium 7.8 L (8.6-10.4) mg/dl Phosphorus 2.5 L (2.7-4.5) mg/dL Albumin 2.9 L (3.2-5.2) gm/dL Pituitary panel 09/12/18 Range/Units 04:00 Sodium 141 (133-145) mmol/L Potassium 3.0 L (3.3-5.1) mmol/L Chloride 103 (96-108) mmol/L Carbon Dioxide 29 (22-30) mmol/L BUN 13 (8-23) mg/dl Creatinine 0.6 (0.6-1.1) mg/dl Glucose 92 (70-105) mg/dL Calcium 7.8 L (8.6-10.4) mg/dl Adrenal panel 09/12/18 Range/Units 04:00 Sodium 141 (133-145) mmol/L Potassium 3.0 L (3.3-5.1) mmol/L Chloride 103 (96-108) mmol/L Carbon Dioxide 29 (22-30) mmol/L BUN 13 (8-23) mg/dl Creatinine 0.6 (0.6-1.1) mg/dl Glucose 92 (70-105) mg/dL Calcium 7.8 L (8.6-10.4) mg/dl Total Bilirubin 0.5 (0.0-1.0) mg/dL AST 23 (0-37) U/l ALT 10 (0-40) U/l Alkaline Phosphatase 67 (39-117) U/L Total Protein 5.2 L (5.9-8.4) gm/dL Albumin 2.9 L (3.2-5.2) gm/dL Assessment and Plan (1) Small bowel obstruction Status: Resolved Assessment and plan: In partial small bowel obstruction is resolved. Patient can be advanced to regular diet as tolerated. I will sign off effective today. Current Visit: Yes (2) Inflammatory arthritis Status: Chronic Current Visit: No (3) Sjogren's syndrome Status: Chronic Current Visit: No (4) GERD (gastroesophageal reflux disease) Status: Acute Current Visit: No (5) Crohns disease Status: Chronic Current Visit: No - Time Spent With Patient Total time spent is greater than 50% in coordination of care (as documented) at patient's floor/unit and/or counseling patient:
[2018-09-12] MEDS: CALCIUM (OYSTER SHELL) 500 MG TABLET PO SCH ×2 (14:09→21:26)
[2018-09-12] MEDS: oxyCODONE/APAP 5/325MG TABLET PO PRN (16:18)
[2018-09-12] MEDS ORDERED: TOLTERODINE 2 MG CAP.XL.24H PO SCH (21:00)
[2018-09-12] MEDS: DOCUSATE SODIUM 100 MG CAPSULE PO SCH (21:25)
[2018-09-12] MEDS: ASPIRIN 325 MG ENTERIC COATED TABLET PO SCH (21:26)
[2018-09-12] MEDS: TOLTERODINE 2 MG CAP.XL.24H PO SCH (21:29)
[2018-09-12] MEDS: MELOXICAM 7.5 MG TABLET PO SCH (21:36)
[2018-09-13] MEDS: HYDROcodone/APAP 5/325MG TABLET PO PRN ×3 (03:32→21:40)
[2018-09-13] MEDS: PIPERACILLIN SODIUM/TAZOBACTAM 3.375 GM in DEXTROSE 5% IN WATER 50 ML IV SCH (05:41)
[2018-09-13] MEDS: 0.9 % SODIUM CHLORIDE 10 ML SYRINGE IV SCH ×3 (05:57→21:43)
[2018-09-13] MEDS: PANTOPRAZOLE 40 MG VIAL IV SCH ×2 (06:59→16:49)
[2018-09-13] MEDS: LEVOTHYROXINE 125 MCG TABLET PO SCH (06:59)
--- NOTE | 2018-09-13 07:23 | Internal Med Progress Note ---
Medical - PN: Subj Patient information: Note initiated : 09/13/18 at 7:20 am Service Date, if different from initiated Date: [] Patient: Rosalinda Gilbert a 77 y/o F admitted on 09/07/18 for Right Total Knee Arthroplasty Rico . Chief Complaint: [] Interval history: Ms. Gilbert is a 77 year old F admitted to the hospital under the Ortho service for knee replacement, she had a knee replacement done on the . The patient was doing well until this morning. She developed abdominal discomfort and has been throwing up since then. The patient had an episode of diaphoresis, some reflux symptoms and epigastric distress, tachycardia, and an EKG was done. There were changes in the patient's EKG compared to her previous preop EKG. Troponin was negative medicine was consulted for further management. On my evaluation patient was feeling nauseous and wanting to throw up, she did not have any blood in the vomitus, she was in mild distress from her nausea otherwise had no other complaints. On my evaluation she denied any headache changes in vision, she did admit to some dizziness before, she denied any chest pain chest discomfort or chest tightness denied any palpitations or shortness of breath. She did admit to abdominal discomfort nausea and vomiting. No bowel movements. The patient denies any new joint pain except there is pain in the knee from surgery, she denies any skin rashes denies any depression or anxiety. [place] Her troponin initial draw was negative. EKG showed sinus rhythm, right bundle branch block first-degree heart block and Q waves in V4 to V6 which are new compared to her previous EKG 09/10 Patient seen examined, still very nauseaus, despite reglan and zofran no events on tele, on asa pt trop x 3 is negative EKG changes likely from GI symptoms Plan to get CT abdomen and pelvix IV PPI and phenergan labs unremarkable, amylase and lipase is negative. lft normal 5/3 Poor sleep from interruptions. Had several small bowel movements this morning. Has some crampy abdominal pain but otherwise no new complaints. 5/4 Feeling better. Having bowel movements. No new complaints. Tolerating oral intake. 5/5 Slept okay but "not quite like home". she feels she needs a laxative even though nurse reports loose stool yesterday. no other complaints. tolerating oral diet. Review of Systems: denies headache/fever/chills/nausea/vomiting/chest /cough/dyspnea. Otherwise see above. - Constitutional Vitals: Vital Signs Temp Pulse Resp BP Pulse Ox 97.9 F 92 H 16 128/67 96 09/13/18 04:00 09/13/18 04:00 09/13/18 04:00 09/13/18 04:00 09/13/18 04:00 Period Temp Pulse Resp BP Sys/Adler Pulse Ox Last 24 Hr 97.7 F-98.4 F 79-92 16-20 92-145/60-78 92-96 Intake and Output 09/12/18 09/13/18 09/13/18 21:59 05:59 13:59 Intake Total 710 50 Output Total 151 Balance 559 50 Weight 113.852 kg Intake & Output: Intake & Output 09/12/18 09/13/18 09/13/18 21:59 05:59 13:59 Intake Total 710 50 Output Total 151 Balance 559 50 Weight 113.852 kg Intake: IV 50 50 Zosyn 3.375 gm In Dextrose 5% 50 50 in Water 50 ml @ 100 mls/hr IV Q6H [facility] Rx#:[id number] Oral 660 Output: Urine/Stool Mix 151 Other: Meal Dinner Percent of Meal Consumed 75% Stool Size Small Stool Color Brown Stool Consistency Loose # Voids 1 2 # Bowel Movements 1 # of times incontinent of 1 Bowels Exam: General: Alert, Awake, No acute Distress, obese Eyes/N/T: EOMI, Head/Neck: neck supple, CV: RRR, 1/6 SM Pulm: Clear b/l, no wheezing/rhonchi/rales Abd: Soft, bowel sounds present, Ext: no clubbing/cyanosis, 1+ b/l LE edema Neuro: Alert, no focal deficits, moves all extremities, Skin: warm/dry Medical - PN: Obj Da - Labs CBC & Chem 7: 09/12/18 04:00 09/12/18 04:00 Labs: Abnormal Lab Results 09/12/18 09/12/18 09/11/18 04:00 04:00 04:00 RBC 3.14 L Hgb 8.8 L Hct 27.6 L RDW 18.1 H Lymph % (Auto) 12.9 L [place] % (Auto) 14.3 H Lymph # (Auto) 0.6 L Potassium 3.0 L Calcium 7.8 L 8.3 L Phosphorus 2.5 L Total Protein 5.2 L 5.2 L Albumin 2.9 L 2.7 L 09/11/18 04:00 RBC 3.25 L Hgb 9.1 L Hct 28.4 L RDW 18.9 H Lymph % (Auto) 10.7 L [place] % (Auto) 13.1 H Lymph # (Auto) 0.6 L Potassium Calcium Phosphorus Total Protein Albumin Meds: Medications Hydrocodone Bitart/Acetaminophen ([place] 5/325mg) 1 tab PO Q4-6HP PRN PRN Reason: PAIN LEVEL 3-6 Last Admin: 09/13/18 03:32 Dose: 1 tab Documented by: Aspirin (Ecotrin) 325 mg PO BID [facility] Last Admin: 09/12/18 21:26 Dose: 325 mg Documented by: Calcium Carbonate/Glycine (Oscal) 500 mg PO TID [facility] Last Admin: 09/12/18 21:26 Dose: 500 mg Documented by: Docusate Sodium (Colace) 100 mg PO BID [facility] Last Admin: 09/12/18 21:25 Dose: 100 mg Documented by: Folic Acid (Folic Acid) 1 mg PO DAILY [facility] Hydromorphone HCl (Dilaudid) 1 mg IV Q4HP PRN PRN Reason: PAIN LEVEL > 6 Piperacillin Sod/Tazobactam (Sod 3.375 gm/ Dextrose) 50 mls @ 100 mls/hr IV Q6H [facility]; Protocol Last Admin: 09/13/18 05:41 Dose: 100 mls/hr Documented by: Lactobacillus Rhamnosus (Culturelle) 1 cap PO DAILY [facility] Levothyroxine Sodium (Synthroid) 125 mcg PO QAMAC [facility] Last Admin: 09/13/18 06:59 Dose: 125 mcg Documented by: Lorazepam (Ativan) 1 mg IV Q6HP PRN PRN Reason: ANXIETY/SEDATION Meloxicam (Mobic) 7.5 mg PO BID [facility] Last Admin: 09/12/18 21:36 Dose: 7.5 mg Documented by: Nitroglycerin (Nitrostat) 0.4 mg SL Q5M PRN PRN Reason: Chest Pain Nortriptyline HCl (Pamelor) 75 mg PO DAILY [facility] Ondansetron HCl (Zofran) 4 mg IV Q4HP PRN PRN Reason: Nausea And Vomiting Oxycodone/Acetaminophen (Percocet 5-325 Mg) 2 tab PO Q4HP PRN PRN Reason: PAIN LEVEL 3-6 Last Admin: 09/12/18 16:18 Dose: 2 tab Documented by: Pantoprazole Sodium (Protonix) 40 mg IV BIDAC [facility] Last Admin: 09/13/18 06:59 Dose: 40 mg Documented by: Promethazine HCl (Phenergan) 12.5 mg IV Q4HP PRN PRN Reason: Nausea And Vomiting Fluticasone/Salmeterol (Advair 100-50 Diskus) 1 puff INH BID [facility] Last Admin: 09/12/18 21:26 Dose: 1 dose Documented by: Sodium Chloride (Saline Flush) 10 ml IV Q8 [facility] Last Admin: 09/13/18 05:57 Dose: 10 ml Documented by: Throat Lozenges (Cepacol) 1 lozenge PO PRN PRN PRN Reason: Sore Throat Tolterodine Tartrate (Detrol La) 4 mg PO HS [facility] Last Admin: 09/12/18 21:29 Dose: 4 mg Documented by: Vitamin D (Vitamin D3) 1,000 unit PO DAILY [facility] Medical - PN: A/P - Time Spent With Patient Total time spent is greater than 50% in coordination of care (as documented) at patient's floor/unit and/or counseling patient: - Narrative A/P Narrative: Assessment: *pSBO: resolved *Abnormal EKG: No Chest Pain -trop neg x3 -echo with normal LV, no WMA, grade I diastolic dysfxn *R TKA: *Anemia, post-op + dilutional: *Obese *hypokalemia: Plan: -diet per surg -Knee per ortho -monitor electrolytes and replace -antiemetics -pt/ot -DVT ppx: per ortho, ASA bid
[2018-09-13] MEDS ORDERED: POLYETHYLENE GLYCOL 3350 17 GM PACKET PO PRN (08:16)
[2018-09-13] MEDS ORDERED: FUROSEMIDE 40 MG/4 ML VIAL IV ONE (08:18)
[2018-09-13] MEDS ORDERED: POTASSIUM CHLORIDE 20 MEQ TABLET PO ONE (08:18)
[2018-09-13] MEDS: LACTOBACILLUS 1 CAPSULE PO SCH (08:38)
[2018-09-13] MEDS: MELOXICAM 7.5 MG TABLET PO SCH ×2 (08:40→21:40)
[2018-09-13] MEDS: DOCUSATE SODIUM 100 MG CAPSULE PO SCH ×2 (08:40→22:10)
[2018-09-13] MEDS: FOLIC ACID 1 MG TABLET PO SCH (08:40)
[2018-09-13] MEDS: NORTRIPTYLINE 25 MG CAPSULE PO SCH (08:40)
[2018-09-13] MEDS: VITAMIN D3 1,000 UNIT TABLET PO SCH (08:40)
[2018-09-13] MEDS: FLUTICASONE/SALMETEROL 50/100 INHALER #14 INH SCH ×2 (08:41→21:40)
[2018-09-13] MEDS: ASPIRIN 325 MG ENTERIC COATED TABLET PO SCH ×2 (08:42→21:39)
[2018-09-13] MEDS: CALCIUM (OYSTER SHELL) 500 MG TABLET PO SCH ×3 (08:42→21:39)
[2018-09-13] MEDS: TOLTERODINE 2 MG CAP.XL.24H PO SCH (21:40)
[2018-09-14] MEDS: oxyCODONE/APAP 5/325MG TABLET PO PRN ×2 (01:19→09:09)
--- NOTE | 2018-09-14 06:17 | Internal Med Progress Note ---
Medical - PN: Subj Patient information: Note initiated : 09/14/18 at 6:16 am Service Date, if different from initiated Date: [] Patient: Rosalinda Gilbert a 77 y/o F admitted on 09/07/18 for Right Total Knee Arthroplasty Rico . Chief Complaint: [] Interval history: Ms. Gilbert is a 77 year old F admitted to the hospital under the Ortho service for knee replacement, she had a knee replacement done on the . The patient was doing well until this morning. She developed abdominal discomfort and has been throwing up since then. The patient had an episode of diaphoresis, some reflux symptoms and epigastric distress, tachycardia, and an EKG was done. There were changes in the patient's EKG compared to her previous preop EKG. Troponin was negative medicine was consulted for further management. On my evaluation patient was feeling nauseous and wanting to throw up, she did not have any blood in the vomitus, she was in mild distress from her nausea otherwise had no other complaints. On my evaluation she denied any headache changes in vision, she did admit to some dizziness before, she denied any chest pain chest discomfort or chest tightness denied any palpitations or shortness of breath. She did admit to abdominal discomfort nausea and vomiting. No bowel movements. The patient denies any new joint pain except there is pain in the knee from surgery, she denies any skin rashes denies any depression or anxiety. Arthur Her troponin initial draw was negative. EKG showed sinus rhythm, right bundle branch block first-degree heart block and Q waves in V4 to V6 which are new compared to her previous EKG 09/10 Patient seen examined, still very nauseaus, despite reglan and zofran no events on tele, on asa pt trop x 3 is negative EKG changes likely from GI symptoms Plan to get CT abdomen and pelvix IV PPI and phenergan labs unremarkable, amylase and lipase is negative. lft normal 5/3 Poor sleep from interruptions. Had several small bowel movements this morning. Has some crampy abdominal pain but otherwise no new complaints. 5/4 Feeling better. Having bowel movements. No new complaints. Tolerating oral intake. 09/13 Slept okay but "not quite like home". she feels she needs a laxative even though nurse reports loose stool yesterday. no other complaints. tolerating oral diet. 5/6 No issues overnight. No new complaints. Patient likely discharge to rehab today. Review of Systems: denies headache/fever/chills/nausea/vomiting/chest /cough/dyspnea. Otherwise see above. - Constitutional Vitals: Vital Signs Temp Pulse Resp BP Pulse Ox 98.3 F 94 H 12 132/71 93 09/14/18 04:05 09/14/18 04:05 09/14/18 04:05 09/14/18 04:05 09/14/18 04:05 Period Temp Pulse Resp BP Sys/Adler Pulse Ox Last 24 Hr 97.6 F-98.3 F 75-104 12-16 110-156/59-76 92-95 Intake and Output 09/13/18 09/14/18 09/14/18 21:59 05:59 13:59 Intake Total 200 725 Output Total 750 450 Balance -550 275 Weight 111.13 kg Intake & Output: Intake & Output 09/13/18 09/14/18 09/14/18 21:59 05:59 13:59 Intake Total 200 725 Output Total 750 450 Balance -550 275 Weight 111.13 kg Intake: Oral 200 725 Output: Urine Catheter Amount 350 Void Amount 400 Urine/Stool Mix 450 Other: Urine Appearance Clear Urine Color Pale Stool Size Small Small Stool Color Brown Brown Stool Consistency Loose # Voids 1 # Bowel Movements 1 1 Exam: General: Alert, Awake, No acute Distress, obese Eyes/N/T: EOMI, Head/Neck: neck supple, CV: RRR, 1/6 SM Pulm: Clear b/l, no wheezing/rhonchi/rales Abd: Soft, bowel sounds present, Ext: no clubbing/cyanosis, mild b/l LE edema Neuro: Alert, no focal deficits, moves all extremities, Skin: warm/dry Medical - PN: Obj Da - Labs CBC & Chem 7: 09/13/18 16:05 09/12/18 04:00 Labs: Abnormal Lab Results 09/13/18 09/12/18 09/12/18 16:05 04:00 04:00 RBC 3.14 L Hgb 10.0 L 8.8 L Hct 30.7 L 27.6 L RDW 18.1 H Lymph % (Auto) 12.9 L [place] % (Auto) 14.3 H Lymph # (Auto) 0.6 L Potassium 3.0 L Calcium 7.8 L Phosphorus 2.5 L Total Protein 5.2 L Albumin 2.9 L 09/11/18 04:00 RBC Hgb Hct RDW Lymph % (Auto) [place] % (Auto) Lymph # (Auto) Potassium Calcium 8.3 L Phosphorus Total Protein 5.2 L Albumin 2.7 L Meds: Medications Hydrocodone Bitart/Acetaminophen ([place] 5/325mg) 1 tab PO Q4-6HP PRN PRN Reason: PAIN LEVEL 3-6 Last Admin: 09/13/18 21:40 Dose: 1 tab Documented by: Aspirin (Ecotrin) 325 mg PO BID [facility] Last Admin: 09/13/18 21:39 Dose: 325 mg Documented by: Calcium Carbonate/Glycine (Oscal) 500 mg PO TID [facility] Last Admin: 09/13/18 21:39 Dose: 500 mg Documented by: Docusate Sodium (Colace) 100 mg PO BID [facility] Last Admin: 09/13/18 22:10 Dose: Not Given Documented by: Folic Acid (Folic Acid) 1 mg PO DAILY [facility] Last Admin: 09/13/18 08:40 Dose: 1 mg Documented by: Hydromorphone HCl (Dilaudid) 1 mg IV Q4HP PRN PRN Reason: PAIN LEVEL > 6 Lactobacillus Rhamnosus (Culturelle) 1 cap PO DAILY [facility] Last Admin: 09/13/18 08:38 Dose: 1 cap Documented by: Levothyroxine Sodium (Synthroid) 125 mcg PO QAMAC [facility] Last Admin: 09/13/18 06:59 Dose: 125 mcg Documented by: Lorazepam (Ativan) 1 mg IV Q6HP PRN PRN Reason: ANXIETY/SEDATION Meloxicam (Mobic) 7.5 mg PO BID [facility] Last Admin: 09/13/18 21:40 Dose: 7.5 mg Documented by: Nitroglycerin (Nitrostat) 0.4 mg SL Q5M PRN PRN Reason: Chest Pain Nortriptyline HCl (Pamelor) 75 mg PO DAILY [facility] Last Admin: 09/13/18 08:40 Dose: 75 mg Documented by: Ondansetron HCl (Zofran) 4 mg IV Q4HP PRN PRN Reason: Nausea And Vomiting Oxycodone/Acetaminophen (Percocet 5-325 Mg) 2 tab PO Q4HP PRN PRN Reason: PAIN LEVEL 3-6 Last Admin: 09/14/18 01:19 Dose: 2 tab Documented by: Pantoprazole Sodium (Protonix) 40 mg IV BIDAC [facility] Last Admin: 09/13/18 16:49 Dose: 40 mg Documented by: Polyethylene Glycol (Miralax) 17 gm PO DAILYP PRN PRN Reason: Constipation Last Admin: 09/13/18 08:43 Dose: 17 gm Documented by: Promethazine HCl (Phenergan) 12.5 mg IV Q4HP PRN PRN Reason: Nausea And Vomiting Fluticasone/Salmeterol (Advair 100-50 Diskus) 1 puff INH BID [facility] Last Admin: 09/13/18 21:40 Dose: 1 puff Documented by: Sodium Chloride (Saline Flush) 10 ml IV Q8 [facility] Last Admin: 09/13/18 21:43 Dose: 10 ml Documented by: Throat Lozenges (Cepacol) 1 lozenge PO PRN PRN PRN Reason: Sore Throat Tolterodine Tartrate (Detrol La) 4 mg PO HS [facility] Last Admin: 09/13/18 21:40 Dose: 4 mg Documented by: Vitamin D (Vitamin D3) 1,000 unit PO DAILY [facility] Last Admin: 09/13/18 08:40 Dose: 1,000 unit Documented by: Medical - PN: A/P - Time Spent With Patient Total time spent is greater than 50% in coordination of care (as documented) at patient's floor/unit and/or counseling patient: - Narrative A/P Narrative: Assessment: *pSBO: resolved *Abnormal EKG: No Chest Pain -trop neg x3 -echo with normal LV, no WMA, grade I diastolic dysfxn *R TKA: *Anemia, post-op + dilutional: f/u improved *Obese *hypokalemia: Plan: -diet per surg -Knee per ortho -monitor electrolytes and replace -antiemetics -pt/ot -likely to rehab today -DVT ppx: per ortho, ASA bid
[2018-09-14] MEDS: LEVOTHYROXINE 125 MCG TABLET PO SCH (07:05)
[2018-09-14] MEDS: PANTOPRAZOLE 40 MG VIAL IV SCH (07:05)
[2018-09-14] MEDS: 0.9 % SODIUM CHLORIDE 10 ML SYRINGE IV SCH (07:06)
[2018-09-14] MEDS: FOLIC ACID 1 MG TABLET PO SCH (09:08)
[2018-09-14] MEDS: MELOXICAM 7.5 MG TABLET PO SCH (09:08)
[2018-09-14] MEDS: LACTOBACILLUS 1 CAPSULE PO SCH (09:08)
[2018-09-14] MEDS: CALCIUM (OYSTER SHELL) 500 MG TABLET PO SCH (09:09)
[2018-09-14] MEDS: VITAMIN D3 1,000 UNIT TABLET PO SCH (09:09)
[2018-09-14] MEDS: ASPIRIN 325 MG ENTERIC COATED TABLET PO SCH (09:09)
[2018-09-14] MEDS: NORTRIPTYLINE 25 MG CAPSULE PO SCH (09:09)
[2018-09-14] MEDS: DOCUSATE SODIUM 100 MG CAPSULE PO SCH (09:11)
[2018-09-14] MEDS: FLUTICASONE/SALMETEROL 50/100 INHALER #14 INH SCH (11:34)
== END 2018-09-14 10:05 | disposition other institution (70) | DRG 470 ==
LOC: MEDSUR 09-07 04:58 → ICU 09-09 21:26 → MEDSUR 09-12 11:35
PROVIDERS: ADMIT Orthopaedic Surgery; ATTEND Internal Medicine

== ENCOUNTER 2023-10-22 23:18 | Inpatient (IN) ==
[2023-10-22] MEDS ORDERED: IOPAMIDOL 100 ML BOTTLE IV ONE (23:19)
[2023-10-23] MEDS: ONDANSETRON 4 MG/2 ML VIAL IV ONE ×2 (00:31→01:16)
[2023-10-23] MEDS: fentaNYL 100 MCG/2 ML VIAL IV ONE ×3 (00:31→03:50)
[2023-10-23 00:54] LABS: Basophils # (Auto) 0.02 K/mcL (0.00-0.30); Basophils % (Auto) 0.4 % (0.0-2.0); Eosinophils # (Auto) 0.01 K/mcL (0.00-0.70); Eosinophils % (Auto) 0.2 % (0.0-7.0); Hematocrit 39.2 % (34.1-44.9); Hemoglobin 12.7 g/dL (11.2-15.7); Lymphocytes # (Auto) 0.58 K/mcL (1.50-4.80); Lymphocytes % (Auto) 11.5 % (15.5-49.0); Mean Cell Volume 91.8 fL (80.0-100.0); Mean Corpuscular HGB Conc 32.4 g/dL (31.0-36.0); Mean Platelet Volume 9.7 fL (8.8-12.5); Monocytes % (Auto) 11.9 % (1.0-12.0); Neutrophils % (Auto) 75.6 % (38.0-78.0); Platelet Count 248 K/mcL (140-440); RBC 4.27 M/mcL (3.59-5.38); Red Cell Distribution Width 14.3 % (11.5-14.5); WBC 5.1 K/mcL (4.5-11.0)
[2023-10-23 01:00] LABS: Amylase 38 U/L (28-100)
[2023-10-23 01:09] LABS: ALT/SGPT < 5 U/L (<40); AST/SGOT 25 U/L (<32); Albumin 3.9 gm/dL (3.2-5.2); Albumin/Globulin Ratio 1.3 (1.0-2.3); Alkaline Phosphatase 83 U/L (39-117); Bilirubin,Total 0.2 mg/dL (0.1-1.0); Blood Urea Nitrogen 13 mg/dL (8-23); Calcium 9.7 mg/dL (8.6-10.4); Carbon Dioxide 21 mmol/L (22-30); Chloride 102 mmol/L (96-108); Glomerular Filtration Rate 68; Glucose 109 mg/dL (70-105)
[2023-10-23] MEDS: 0.9 % SODIUM CHLORIDE 1,000 ML IV ONE (01:39)
[2023-10-23] MEDS ORDERED: IMIPENEM/CILASTATIN SODIUM 500 MG in 0.9 % SODIUM CHLORIDE 100 ML IV SCH (03:45)
[2023-10-23] MEDS: morphine 4 MG/ML VIAL IV ONE (04:48)
[2023-10-23] MEDS: ONDANSETRON 4 MG/2 ML VIAL IV PRN (04:48)
[2023-10-23 05:21] LABS: Appearance,Urine CLOUDY (Clear); Bilirubin,Urine NEGATIVE (Negative); Color,Urine Yellow; Culture Indicated,Urine Yes; Glucose,Urine (UA) NEGATIVE (Negative); Ketones,Urine NEGATIVE (Negative); Leukocyte Esterase,Urine SMALL /uL (Negative); Mucus,Urine FEW /hpf; Nitrate,Urine NEGATIVE (Negative); Protein,Urine NEGATIVE (Negative); Specific Gravity,Urine 1.015 (1.000-1.035); Urine Blood SMALL ery/mcL (Negative); Urine RBC 19 /hpf (0-3); Urine Squamous Epithelial Cell 4 /hpf (0-4); Urine WBC 108 /hpf (0-4); Urobilinogen,Urine Normal
[2023-10-23] MEDS: 0.9 % SODIUM CHLORIDE 1,000 ML IV SCH (08:00)
[2023-10-23] MEDS: morphine 4 MG/ML VIAL IV PRN (09:21)
[2023-10-23] MEDS: VANCOMYCIN PER PHARMACY IV ONE (10:37)
[2023-10-23] MEDS: VANCOMYCIN 1,000 MG in 0.9 % SODIUM CHLORIDE 250 ML IV ONE (10:37)
[2023-10-23] MEDS: ERTAPENEM 1 GM in 0.9 % SODIUM CHLORIDE 50 ML IV ONE (10:37)
[2023-10-23] MEDS ORDERED: VANCOMYCIN PER PHARMACY IV SCH (10:45)
[2023-10-23] MEDS: ERTAPENEM 1 GM in 0.9 % SODIUM CHLORIDE 50 ML IV SCH (11:16)
[2023-10-23] MEDS: 0.9 % SODIUM CHLORIDE 10 ML SYRINGE IV SCH (11:17)
[2023-10-23] MEDS: VANCOMYCIN 1,500 MG in 0.9 % SODIUM CHLORIDE 500 ML IV SCH (11:54)
[2023-10-23] MEDS: VANCOMYCIN 1,000 MG in 0.9 % SODIUM CHLORIDE 250 ML IV SCH (14:05)
[2023-10-23] MEDS: metroNIDAZOLE 500 MG/100 ML BAG IV SCH (14:37)
[2023-10-23] MEDS: DEXTROSE 5%-LR 1,000 ML IV SCH ×2 (20:44→21:03)
[2023-10-23] MEDS: PANTOPRAZOLE 40 MG VIAL IV SCH (20:45)
[2023-10-23] MEDS ORDERED: PANTOPRAZOLE 40 MG VIAL IV ONE (21:15)
[2023-10-23] MEDS: PANTOPRAZOLE 40 MG VIAL IV ONE (21:19)
[2023-10-23] MEDS: LACTATED RINGERS 1,000 ML IV SCH (21:48)
[2023-10-24 06:43] LABS: Hematocrit 32.1 % (34.1-44.9); Hemoglobin 10.1 g/dL (11.2-15.7); Mean Cell Volume 94.7 fL (80.0-100.0); Mean Corpuscular HGB Conc 31.5 g/dL (31.0-36.0); Mean Platelet Volume 9.5 fL (8.8-12.5); Platelet Count 236 K/mcL (140-440); RBC 3.39 M/mcL (3.59-5.38); Red Cell Distribution Width 14.4 % (11.5-14.5)
[2023-10-24 07:00] LABS: Blood Urea Nitrogen 10 mg/dL (8-23); Calcium 8.5 mg/dL (8.6-10.4); Carbon Dioxide 23 mmol/L (22-30); Chloride 108 mmol/L (96-108); Glomerular Filtration Rate 84; Glucose 99 mg/dL (70-105)
[2023-10-24] MEDS: PANTOPRAZOLE 40 MG VIAL IV SCH (07:08)
[2023-10-25 10:46] LABS: Basophils # (Auto) 0.01 K/mcL (0.00-0.30); Basophils % (Auto) 0.2 % (0.0-2.0); Eosinophils # (Auto) 0 K/mcL (0.00-0.70); Eosinophils % (Auto) 0 % (0.0-7.0); Hematocrit 35.1 % (34.1-44.9); Hemoglobin 10.8 g/dL (11.2-15.7); Lymphocytes # (Auto) 0.75 K/mcL (1.50-4.80); Lymphocytes % (Auto) 16.1 % (15.5-49.0); Mean Corpuscular HGB Conc 30.8 g/dL (31.0-36.0); Mean Platelet Volume 9.4 fL (8.8-12.5); Monocytes # (Auto) 0.54 K/mcL (0.10-0.90); Monocytes % (Auto) 11.6 % (1.0-12.0); Neutrophils % (Auto) 71.5 % (38.0-78.0); Platelet Count 262 K/mcL (140-440); RBC 3.62 M/mcL (3.59-5.38); Red Cell Distribution Width 14.4 % (11.5-14.5); WBC 4.7 K/mcL (4.5-11.0)
[2023-10-25 11:47] LABS: ALT/SGPT < 5 U/L (<40); AST/SGOT 22 U/L (<32); Albumin 3.2 gm/dL (3.2-5.2); Albumin/Globulin Ratio 1.3 (1.0-2.3); Alkaline Phosphatase 63 U/L (39-117); Bilirubin,Total < 0.2 mg/dL (0.1-1.0); Blood Urea Nitrogen 6 mg/dL (8-23); Calcium 8.8 mg/dL (8.6-10.4); Carbon Dioxide 26 mmol/L (22-30); Chloride 104 mmol/L (96-108); Globulin 2.5 gm/dL (2.2-3.7); Glomerular Filtration Rate 84; Glucose 103 mg/dL (70-105)
[2023-10-25] MEDS: AMPICILLIN SODIUM/SULBACTAM NA 3 GM in 0.9 % SODIUM CHLORIDE 100 ML IV SCH (16:14)
[2023-10-26 07:09] LABS: Basophils # (Auto) 0.03 K/mcL (0.00-0.30); Basophils % (Auto) 0.8 % (0.0-2.0); Eosinophils # (Auto) 0 K/mcL (0.00-0.70); Eosinophils % (Auto) 0 % (0.0-7.0); Hematocrit 32.1 % (34.1-44.9); Hemoglobin 10.2 g/dL (11.2-15.7); Lymphocytes # (Auto) 0.83 K/mcL (1.50-4.80); Lymphocytes % (Auto) 21.7 % (15.5-49.0); Mean Cell Volume 96.1 fL (80.0-100.0); Mean Corpuscular HGB Conc 31.8 g/dL (31.0-36.0); Mean Platelet Volume 9.7 fL (8.8-12.5); Monocytes # (Auto) 0.56 K/mcL (0.10-0.90); Monocytes % (Auto) 14.6 % (1.0-12.0); Neutrophils % (Auto) 61.9 % (38.0-78.0); Platelet Count 260 K/mcL (140-440); RBC 3.34 M/mcL (3.59-5.38); Red Cell Distribution Width 14.3 % (11.5-14.5); WBC 3.8 K/mcL (4.5-11.0)
[2023-10-26 07:38] LABS: ALT/SGPT 6 U/L (<40); AST/SGOT 28 U/L (<32); Albumin 2.9 gm/dL (3.2-5.2); Albumin/Globulin Ratio 1.3 (1.0-2.3); Alkaline Phosphatase 58 U/L (39-117); Bilirubin,Total < 0.2 mg/dL (0.1-1.0); Blood Urea Nitrogen 5 mg/dL (8-23); Calcium 8.6 mg/dL (8.6-10.4); Carbon Dioxide 26 mmol/L (22-30); Chloride 104 mmol/L (96-108); Globulin 2.3 gm/dL (2.2-3.7); Glomerular Filtration Rate 84; Glucose 107 mg/dL (70-105)
[2023-10-26] MEDS: [UNRECOGNIZED DRUG - OTHER] IV SCH (18:03)
[2023-10-26] MEDS: POTASSIUM CHLORIDE 20 MEQ/10 ML VIAL IV ONE (18:03)
[2023-10-26] MEDS: DEXTROSE 5% IV SCH (18:03)
[2023-10-26] MEDS: POTASSIUM CHLORIDE IV SCH (18:03)
[2023-10-26] MEDS: POTASSIUM CHLORIDE 20 MEQ TABLET PO SCH (22:22)
[2023-10-27 07:10] LABS: Basophils # (Auto) 0.02 K/mcL (0.00-0.30); Basophils % (Auto) 0.7 % (0.0-2.0); Eosinophils # (Auto) 0 K/mcL (0.00-0.70); Eosinophils % (Auto) 0 % (0.0-7.0); Hematocrit 34.9 % (34.1-44.9); Lymphocytes # (Auto) 0.79 K/mcL (1.50-4.80); Lymphocytes % (Auto) 26.5 % (15.5-49.0); Mean Cell Volume 94.8 fL (80.0-100.0); Mean Corpuscular HGB Conc 31.5 g/dL (31.0-36.0); Mean Platelet Volume 9.4 fL (8.8-12.5); Monocytes # (Auto) 0.51 K/mcL (0.10-0.90); Monocytes % (Auto) 17.1 % (1.0-12.0); Neutrophils % (Auto) 54.4 % (38.0-78.0); Platelet Count 293 K/mcL (140-440); RBC 3.68 M/mcL (3.59-5.38); Red Cell Distribution Width 14.3 % (11.5-14.5)
[2023-10-27 07:13] LABS: ALT/SGPT < 5 U/L (<40); AST/SGOT 25 U/L (<32); Albumin 3.2 gm/dL (3.2-5.2); Albumin/Globulin Ratio 1.4 (1.0-2.3); Alkaline Phosphatase 61 U/L (39-117); Bilirubin,Total < 0.2 mg/dL (0.1-1.0); Blood Urea Nitrogen 5 mg/dL (8-23); Calcium 8.4 mg/dL (8.6-10.4); Carbon Dioxide 27 mmol/L (22-30); Chloride 105 mmol/L (96-108); Globulin 2.3 gm/dL (2.2-3.7); Glomerular Filtration Rate 80; Glucose 87 mg/dL (70-105)
== END 2023-10-27 13:15 | disposition home or self-care (01) | DRG 690 ==
LOC: ED 23:18 → MEDSUR 10-23 05:33
PROVIDERS: ADMIT Internal Medicine; ATTEND Internal Medicine

== ENCOUNTER 2023-12-11 10:32 | Inpatient (IN) ==
[2023-12-11] MEDS ORDERED: IOPAMIDOL 100 ML BOTTLE IV ONE (10:33)
[2023-12-11] MEDS: 0.9 % SODIUM CHLORIDE 1,000 ML IV ONE (10:59)
[2023-12-11] MEDS: KETOROLAC 30 MG/ML VIAL IV ONE (10:59)
[2023-12-11 11:43] LABS: Basophils # (Auto) 0.02 K/mcL (0.00-0.30); Basophils % (Auto) 0.2 % (0.0-2.0); Eosinophils # (Auto) 0.04 K/mcL (0.00-0.70); Eosinophils % (Auto) 0.5 % (0.0-7.0); Hematocrit 35.8 % (34.1-44.9); Hemoglobin 11.5 g/dL (11.2-15.7); Lymphocytes # (Auto) 0.43 K/mcL (1.50-4.80); Lymphocytes % (Auto) 5.2 % (15.5-49.0); Mean Cell Volume 94.7 fL (80.0-100.0); Mean Corpuscular HGB Conc 32.1 g/dL (31.0-36.0); Mean Platelet Volume 10.1 fL (8.8-12.5); Monocytes # (Auto) 0.67 K/mcL (0.10-0.90); Monocytes % (Auto) 8.1 % (1.0-12.0); Neutrophils % (Auto) 85.9 % (38.0-78.0); Platelet Count 215 K/mcL (140-440); RBC 3.78 M/mcL (3.59-5.38); WBC 8.3 K/mcL (4.5-11.0)
[2023-12-11] MEDS: HYDROmorphone 0.5 MG/0.5 ML SYRINGE IV PRN (11:44)
[2023-12-11 12:08] LABS: ALT/SGPT < 5 U/L (<40); AST/SGOT 26 U/L (<32); Albumin 3.7 gm/dL (3.2-5.2); Albumin/Globulin Ratio 1.6 (1.0-2.3); Alkaline Phosphatase 75 U/L (39-117); Bilirubin,Total 0.4 mg/dL (0.1-1.0); Blood Urea Nitrogen 24 mg/dL (8-23); Calcium 9.1 mg/dL (8.6-10.4); Carbon Dioxide 26 mmol/L (22-30); Chloride 104 mmol/L (96-108); Globulin 2.3 gm/dL (2.2-3.7); Glomerular Filtration Rate 80; Glucose 91 mg/dL (70-105); Potassium 4.1 mmol/L (3.3-5.1); Sodium 139 mmol/L (133-145)
[2023-12-11 14:33] LABS: Appearance,Urine Slightly Cloudy (Clear); Bacteria,Urine Few /hpf (0); Bilirubin,Urine Negative (Negative); Color,Urine Yellow; Culture Indicated,Urine Yes; Glucose,Urine (UA) Negative (Negative); Ketones,Urine Negative (Negative); Leukocyte Esterase,Urine Trace /uL (Negative); Mucus,Urine Few /hpf; Nitrate,Urine Negative (Negative); Protein,Urine Negative (Negative); Specific Gravity,Urine 1.015 (1.000-1.035); Urine Blood Large ery/mcL (Negative); Urine RBC > 182 /hpf (0-1); Urine Squamous Epithelial Cell 3 /hpf (0-4); Urine Transitional Epi Cells 3 /hpf (0-2); Urine WBC 4 /hpf (0-4); Urobilinogen,Urine Normal
[2023-12-11] MEDS: 0.9 % SODIUM CHLORIDE 10 ML SYRINGE IV SCH (14:44)
[2023-12-11] MEDS: 0.9 % SODIUM CHLORIDE 1,000 ML IV SCH (14:55)
[2023-12-11] MEDS: METOCLOPRAMIDE 10 MG/2 ML VIAL IV SCH (19:54)
[2023-12-11] MEDS: METHYLNALTREXONE BROMIDE 12 MG/0.6 ML SYRINGE SQ SCH (19:54)
[2023-12-11] MEDS: ONDANSETRON 4 MG/2 ML VIAL IV PRN (19:54)
[2023-12-12 07:05] LABS: Basophils # (Auto) 0.01 K/mcL (0.00-0.30); Basophils % (Auto) 0.2 % (0.0-2.0); Eosinophils # (Auto) 0.03 K/mcL (0.00-0.70); Eosinophils % (Auto) 0.5 % (0.0-7.0); Hematocrit 33.9 % (34.1-44.9); Hemoglobin 10.7 g/dL (11.2-15.7); Lymphocytes # (Auto) 0.58 K/mcL (1.50-4.80); Lymphocytes % (Auto) 10.2 % (15.5-49.0); Mean Cell Volume 96.6 fL (80.0-100.0); Mean Corpuscular HGB Conc 31.6 g/dL (31.0-36.0); Monocytes # (Auto) 0.58 K/mcL (0.10-0.90); Monocytes % (Auto) 10.2 % (1.0-12.0); Neutrophils % (Auto) 78.7 % (38.0-78.0); Platelet Count 181 K/mcL (140-440); RBC 3.51 M/mcL (3.59-5.38); Red Cell Distribution Width 14.9 % (11.5-14.5); WBC 5.7 K/mcL (4.5-11.0)
[2023-12-12 07:08] LABS: ALT/SGPT < 5 U/L (<40); AST/SGOT 25 U/L (<32); Albumin 3.4 gm/dL (3.2-5.2); Albumin/Globulin Ratio 1.6 (1.0-2.3); Alkaline Phosphatase 71 U/L (39-117); Bilirubin,Direct 0.2 mg/dL (<0.3); Bilirubin,Total 0.5 mg/dL (0.1-1.0); Blood Urea Nitrogen 25 mg/dL (8-23); Calcium 8.5 mg/dL (8.6-10.4); Carbon Dioxide 24 mmol/L (22-30); Chloride 107 mmol/L (96-108); Globulin 2.1 gm/dL (2.2-3.7); Glomerular Filtration Rate 80; Glucose 57 mg/dL (70-105); Lactate Dehydrogenase 163 U/L (135-225); Phosphorous 3.3 mg/dL (2.5-4.5); Potassium 3.7 mmol/L (3.3-5.1); Sodium 143 mmol/L (133-145); Triglycerides 40 mg/dL (<150)
[2023-12-13 06:46] LABS: ALT/SGPT < 5 U/L (<40); AST/SGOT 27 U/L (<32); Albumin 3.5 gm/dL (3.2-5.2); Albumin/Globulin Ratio 1.6 (1.0-2.3); Alkaline Phosphatase 71 U/L (39-117); Bilirubin,Direct < 0.2 mg/dL (0-0.3); Bilirubin,Total 0.5 mg/dL (0.1-1.0); Blood Urea Nitrogen 23 mg/dL (8-23); Calcium 8.6 mg/dL (8.6-10.4); Carbon Dioxide 28 mmol/L (22-30); Chloride 106 mmol/L (96-108); Globulin 2.2 gm/dL (2.2-3.7); Glomerular Filtration Rate 84; Glucose 63 mg/dL (70-105); Lactate Dehydrogenase 174 U/L (135-225); Phosphorous 2.7 mg/dL (2.5-4.5); Potassium 3.2 mmol/L (3.3-5.1); Sodium 145 mmol/L (133-145); Triglycerides 46 mg/dL (<150); Uric Acid 7.2 mg/dL (2.5-8.0)
[2023-12-13 07:17] LABS: Basophils # (Auto) 0.01 K/mcL (0.00-0.30); Basophils % (Auto) 0.2 % (0.0-2.0); Eosinophils # (Auto) 0.05 K/mcL (0.00-0.70); Eosinophils % (Auto) 1.1 % (0.0-7.0); Hematocrit 33.4 % (34.1-44.9); Hemoglobin 10.6 g/dL (11.2-15.7); Lymphocytes # (Auto) 0.73 K/mcL (1.50-4.80); Lymphocytes % (Auto) 15.5 % (15.5-49.0); Mean Cell Volume 97.9 fL (80.0-100.0); Mean Corpuscular HGB Conc 31.7 g/dL (31.0-36.0); Monocytes # (Auto) 0.44 K/mcL (0.10-0.90); Monocytes % (Auto) 9.4 % (1.0-12.0); Neutrophils % (Auto) 73.6 % (38.0-78.0); Platelet Count 171 K/mcL (140-440); RBC 3.41 M/mcL (3.59-5.38); Red Cell Distribution Width 14.7 % (11.5-14.5); WBC 4.7 K/mcL (4.5-11.0)
[2023-12-13] MEDS ORDERED: DIATRIZOATE MEGLU/DIATRIZO SOD 120ML BOTTLE PO ONE (10:03)
== END 2023-12-14 14:20 | disposition home or self-care (01) | DRG 389 ==
LOC: ED 10:32 → MEDSUR 14:19
PROVIDERS: ADMIT Family Medicine Adult Medicine; ATTEND Family Medicine Adult Medicine

== ENCOUNTER 2024-02-15 09:01 | Inpatient (IN) ==
[2024-02-15] MEDS ORDERED: IOPAMIDOL 100 ML BOTTLE IV ONE (09:02)
[2024-02-15] MEDS: ONDANSETRON 4 MG/2 ML VIAL IV ONE (09:29)
[2024-02-15 09:49] LABS: Basophils # (Auto) 0.01 K/mcL (0.00-0.30); Basophils % (Auto) 0.2 % (0.0-2.0); Eosinophils # (Auto) 0.04 K/mcL (0.00-0.70); Eosinophils % (Auto) 0.6 % (0.0-7.0); Hematocrit 38.4 % (34.1-44.9); Lymphocytes # (Auto) 0.45 K/mcL (1.50-4.80); Mean Cell Volume 92.3 fL (80.0-100.0); Mean Corpuscular HGB Conc 33.9 g/dL (31.0-36.0); Mean Platelet Volume 11.1 fL (8.8-12.5); Monocytes # (Auto) 0.54 K/mcL (0.10-0.90); Monocytes % (Auto) 8.3 % (1.0-12.0); Neutrophils % (Auto) 83.6 % (38.0-78.0); Platelet Count 211 K/mcL (140-440); RBC 4.16 M/mcL (3.59-5.38); Red Cell Distribution Width 13.4 % (11.5-14.5); WBC 6.5 K/mcL (4.5-11.0)
[2024-02-15] MEDS: morphine 4 MG/ML VIAL IV ONE (10:08)
[2024-02-15 11:25] LABS: ALT/SGPT 9 U/L (<40); AST/SGOT 27 U/L (<32); Albumin 3.9 gm/dL (3.2-5.2); Albumin/Globulin Ratio 1.4 (1.0-2.3); Alkaline Phosphatase 87 U/L (39-117); Bilirubin,Total 0.2 mg/dL (0.1-1.0); Blood Urea Nitrogen 32 mg/dL (8-23); Calcium 9.3 mg/dL (8.6-10.4); Carbon Dioxide 26 mmol/L (22-30); Chloride 100 mmol/L (96-108); Globulin 2.8 gm/dL (2.2-3.7); Glomerular Filtration Rate 80; Glucose 108 mg/dL (70-105); Potassium 4.3 mmol/L (3.3-5.1); Sodium 137 mmol/L (133-145)
[2024-02-15] MEDS: FAMOTIDINE 20 MG TABLET PO ONE (12:00)
[2024-02-15] MEDS: HYDROmorphone 0.5 MG/0.5 ML SYRINGE IV ONE (12:42)
[2024-02-15] MEDS: 0.9 % SODIUM CHLORIDE 1,000 ML IV SCH (12:43)
[2024-02-15 14:04] LABS: Appearance,Urine Clear (Clear); Bacteria,Urine Few /hpf (0); Bilirubin,Urine Negative (Negative); Color,Urine Yellow; Glucose,Urine (UA) Negative (Negative); Ketones,Urine Negative (Negative); Leukocyte Esterase,Urine Small /uL (Negative); Mucus,Urine Few /hpf; Nitrate,Urine Positive (Negative); Protein,Urine 30 mg/dL (Negative); Specific Gravity,Urine 1.025 (1.000-1.035); Urine Blood Moderate ery/mcL (Negative); Urine RBC > 182 /hpf (0-1); Urine Squamous Epithelial Cell 1 /hpf (0-4); Urine WBC 4 /hpf (0-4); Urobilinogen,Urine Normal
[2024-02-15] MEDS: METOCLOPRAMIDE 10 MG/2 ML VIAL IV SCH (17:03)
[2024-02-15] MEDS: fentaNYL 100 MCG/2 ML VIAL IV PRN (17:07)
[2024-02-15] MEDS: LEVOFLOXACIN 250 MG/50 ML BAG IV SCH (17:24)
[2024-02-15] MEDS: METHYLNALTREXONE BROMIDE 12 MG/0.6 ML SYRINGE SQ SCH (17:25)
[2024-02-15] MEDS: ONDANSETRON 4 MG/2 ML VIAL IV PRN (21:07)
[2024-02-16] MEDS: PANTOPRAZOLE 40 MG VIAL IV SCH (08:25)
[2024-02-16] MEDS: POLYETHYLENE GLYCOL 3350 17 GM PACKET PO SCH (17:17)
[2024-02-17] MEDS ORDERED: IOPAMIDOL 100 ML BOTTLE IV ONE (17:47)
[2024-02-18] MEDS: LEVOTHYROXINE 50 MCG TABLET PO SCH (08:35)
[2024-02-18] MEDS ORDERED: DIATRIZOATE MEGLU/DIATRIZO SOD 120ML BOTTLE PO ONE (09:39)
[2024-02-19] MEDS: POLYETHYLENE GLYCOL 3350 17 GM PACKET PO SCH (18:05)
[2024-02-21] MEDS: FLEETS ADULT 1 DOSE ENEMA PR SCH (11:42)
[2024-02-22] MEDS: POLYETHYLENE GLYCOL 3350 17 GM PACKET PO SCH (05:32)
[2024-02-22 06:11] LABS: Hematocrit 34.2 % (34.1-44.9); Hemoglobin 11.2 g/dL (11.2-15.7); Mean Cell Volume 95.5 fL (80.0-100.0); Mean Corpuscular HGB Conc 32.7 g/dL (31.0-36.0); Mean Platelet Volume 9.7 fL (8.8-12.5); Platelet Count 237 K/mcL (140-440); RBC 3.58 M/mcL (3.59-5.38); Red Cell Distribution Width 13.2 % (11.5-14.5); WBC 4.5 K/mcL (4.5-11.0)
[2024-02-22 06:47] LABS: Blood Urea Nitrogen 7 mg/dL (8-23); Calcium 8.4 mg/dL (8.6-10.4); Carbon Dioxide 25 mmol/L (22-30); Chloride 104 mmol/L (96-108); Glomerular Filtration Rate 80; Glucose 96 mg/dL (70-105); Potassium 4.2 mmol/L (3.3-5.1); Sodium 139 mmol/L (133-145)
[2024-02-23 06:51] LABS: Blood Urea Nitrogen 7 mg/dL (8-23); Calcium 8.3 mg/dL (8.6-10.4); Carbon Dioxide 25 mmol/L (22-30); Chloride 103 mmol/L (96-108); Glomerular Filtration Rate 80; Glucose 93 mg/dL (70-105); Potassium 4.1 mmol/L (3.3-5.1); Sodium 137 mmol/L (133-145)
[2024-02-24 05:53] LABS: Basophils # (Auto) 0.04 K/mcL (0.00-0.30); Basophils % (Auto) 0.9 % (0.0-2.0); Eosinophils # (Auto) 0.34 K/mcL (0.00-0.70); Eosinophils % (Auto) 7.3 % (0.0-7.0); Hemoglobin 11.2 g/dL (11.2-15.7); Lymphocytes % (Auto) 21.6 % (15.5-49.0); Mean Cell Volume 95.9 fL (80.0-100.0); Mean Platelet Volume 9.5 fL (8.8-12.5); Monocytes # (Auto) 0.74 K/mcL (0.10-0.90); Neutrophils % (Auto) 54.2 % (38.0-78.0); Platelet Count 235 K/mcL (140-440); RBC 3.65 M/mcL (3.59-5.38); WBC 4.6 K/mcL (4.5-11.0)
[2024-02-24 06:31] LABS: ALT/SGPT 8 U/L (<40); AST/SGOT 18 U/L (<32); Albumin 3.5 gm/dL (3.2-5.2); Albumin/Globulin Ratio 1.8 (1.0-2.3); Alkaline Phosphatase 86 U/L (39-117); Bilirubin,Direct < 0.2 mg/dL (0-0.3); Bilirubin,Total 0.4 mg/dL (0.1-1.0); Blood Urea Nitrogen 8 mg/dL (8-23); Calcium 8.4 mg/dL (8.6-10.4); Carbon Dioxide 24 mmol/L (22-30); Chloride 106 mmol/L (96-108); Glomerular Filtration Rate 84; Glucose 92 mg/dL (70-105); Lactate Dehydrogenase 157 U/L (135-225); Phosphorous 3.5 mg/dL (2.5-4.5); Potassium 4.2 mmol/L (3.3-5.1); Sodium 139 mmol/L (133-145); Triglycerides 46 mg/dL (<150); Uric Acid 5.2 mg/dL (2.5-8.0)
[2024-02-24] MEDS ORDERED: IOPAMIDOL 100 ML BOTTLE IV ONE (16:08)
[2024-02-24] MEDS ORDERED: DIATRIZOATE MEGLU/DIATRIZO SOD 120ML BOTTLE PO ONE (16:08)
[2024-02-24] MEDS ORDERED: METOCLOPRAMIDE 10 MG/2 ML VIAL IV ONE (16:16)
[2024-02-24] MEDS ORDERED: GLYCOPYRROLATE 0.2 MG/ML VIAL IV ONE (16:16)
[2024-02-24] MEDS ORDERED: PROPOFOL 200 MG/20 ML VIAL IV ONE (16:16)
[2024-02-24] MEDS ORDERED: ONDANSETRON 4 MG/2 ML VIAL IV ONE (16:16)
[2024-02-24] MEDS ORDERED: hydrALAZINE 20 MG/ML VIAL IV ONE (16:16)
== END 2024-02-25 13:54 | disposition home or self-care (01) | DRG 389 ==
LOC: MEDSUR 09:01 → ED 09:01 → MEDSUR 14:55
PROVIDERS: ADMIT Family Medicine Adult Medicine; ATTEND Family Medicine Adult Medicine